=== PATIENT | male | born 1930 | race Caucasian/White ===

== ENCOUNTER → 2018-02-07 | Outpatient (CLI) | payer MEDICARE, OTHER ==
[~2018-02-07] MED LIST: ACE500 PO; ACET-2146 PO; ACET-2708 PO; ASCO100T PO; ASP325 PO; ASPI-1471 PO; CHOL10005 PO; CLOB50FO2 TP; CYAN100058 PO; EZE10 PO; FINA5TAB67 PO; FLUT10SP NS; GLUC-198 PO; GLUC500C29 PO; IBUP200C71 PO; KETC15T TP; LACT1CAP9 PO; LEV125 PO; LEVO150T72 PO; LORA-629 PO; LORA10TA2 PO; METO25TA91 PO; MIN100 PO; MINO100T8 PO; MOM PO; MULT-865 PO; MULT1CAP41 PO; NIAC100040 PO; OMEG-23 PO; OMEP-125 PO; OMEP40CA45 PO; OXYGENHOME INH; PER PO; PRED20TA6 PO; SAW450CA3 PO; SAW500CA10 PO; SEN100 PO; SILD100T59 PO; TRI05T TOP; TRIA15OI20 TP; VIT1CAPS9 PO; XLEAR NS; [UNRECOGNIZED DRUG - CODE] TP; [UNRECOGNIZED DRUG - CODE] TP; [UNRECOGNIZED DRUG - CODE] TP; [UNRECOGNIZED DRUG - MIXTURE]
[2018-02-07 14:01] LABS: PLATELET COUNT, AUTOMATED 236 K/uL (150-450)
== END ==
LOC: LAB 13:40
PROVIDERS: ATTEND Nurse Practitioner Family
DX: M25.50 Pain in unspecified joint (principal); M79.1 Myalgia
CPT/HCPCS: 36415; 82040; 82247; 82310; 82374; 82435; 82565; 82947; 84075; 84132; 84155; 84295; 84450; 84460; 84520; 85025; 85651; 86140

== ENCOUNTER 2018-02-18 02:02 | Emergency (ER) | payer MEDICARE, OTHER ==
[~2018-02-18 02:02] MED LIST changes: -CYCL10TA29 PO; -TRAM-420 PO
--- NOTE | 2018-02-18 02:27 | ER Report ---
History and Physical Time Seen By MD: 02:13 Hx. of Stated Complaint: PT REPORTS SEVERE SPASMS /PAIN IN R BUTTOCK AREA AND BETWEEN LEGS HPI/ROS CHIEF COMPLAINT: back pain HISTORY OF PRESENT ILLNESS: This is an 87 year old male. He is having severe pain in the low back. Has been having some low back problems, and has an appointment to see Dr. Simms later today. Tonight awoke with pain that was uncontrollable. Could not get out of bed. Called EMS and they responded. Started IV and gave him 10mg of Morphine IV and Ativan 2mg IV with minimal relief. Arrived and was in obvious distress because of severe pain. Pain is in right buttock and down his legs. He also has a burning pain in the buttock and between legs to scrotum and testicles. He has had a recent MRI of the lumbar spine at [facility]. Dr. Munoz was going to be doing a steroid injection today. He denies any bowel or bladder incontinence. He has not been able to have a bowel movement today. Denies any pain with palpating over the scrotum, testicles, crotch, buttocks area, even though that is where he is feeling some burning pain. When he tries to move, the pain worsens severely. No recent illnesses, shortness of breath, chest pain. No fevers or chills. Allergies: Coded Allergies: adhesive (Verified Allergy, Mild, WELTS, 11/02/12) tamsulosin (Verified Allergy, Unknown, Dizziness, 12/22/17) Home Meds Active Scripts Omeprazole (OMEPRAZOLE) 20 Mg Capsule.dr, 1 CAP PO QODAY for 90 Days, #45 CAP 4 Refills Prov:NIDIA JOSEPH MD 01/13/18 Reported Medications Oxygen (OXYGEN) Inha, 2 L INH HS, L 12/23/17 [place]-3 Fatty Acids/Fish Oil (FISH OIL 1,000 MG SOFTGEL) 1 Each Capsule, 1 CAP PO BID, CAPSULE 12/23/17 Saw [place] Fruit (SAW PALMETTO) 450 Mg Capsule, 1 CAP PO BID, CAPSULE 12/23/17 Glucosa Barajas 2KCL/Chondroitin Barajas (GLUCOSAMINE & CHONDROITIN CAP) 1 Each Capsule, 2 CAP PO BID, CAPSULE 12/23/17 Cyanocobalamin (Vitamin B-12) (Vitamin B-12) 1,000 Mcg Capsule, 1 CAP PO QDAY 5/24/18 Cholecalciferol (Vitamin D3) (VITAMIN D3) 1,000 Unit Tablet, 1 TAB PO QDAY, TAB 12/23/17 Vit C/E/Zn/Coppr/Lutein/Zeaxan (Preservision Areds 2 Softgel) 1 Each Capsule, 1 CAP PO BID 12/23/17 Triamcinolone Acetonide 0.1% Oint 15 Gm Tube (TRIAMCINOLONE ACETONIDE 0.1% 15 GM TUBE) 15 Gm Oint...g., 1 SAMANTA TP PRN, TUBE 12/23/17 Clobetasol Propionate/Emoll (CLOBETASOL EMOLLNT 0.05% FOAM) 50 Gm Foam, 1 SAMANTA TP BID 12/23/17 Ketoconazole (KETOCONAZOLE) Unknown Strength Cream..g., TP BID, #15 TUBE 12/23/17 Multivitamin (DAILY MULTIPLE VITAMIN) 1 Each Tablet, 1 TAB PO DAILY 12/23/17 Minocycline Hcl (MINOCYCLINE HCL) 100 Mg Tablet, 1 TAB PO QDAY Y for PRN, CAPSULE 12/23/17 Aspirin (ASPIR 81) 81 Mg Tablet.dr, 1 TAB PO HS, TAB 12/23/17 Acetaminophen 500 Mg Tab (ACETAMINOPHEN EXTRA STRENGTH) 500 Mg Tablet, 2 TAB PO HS, TAB 12/23/17 [XLear] No Conflict Check, 1 SPRAY NS PRN 12/23/17 Lactobacillus Combo No.10 (PROBIOTIC) 1 Each Capsule, 1 EACH PO QDAY, CAPSULE 12/23/17 Finasteride (FINASTERIDE) 5 Mg Tablet, 1 TAB PO HS 12/23/17 Levothyroxine Sodium (LEVOTHYROXINE SODIUM) 0.125 Mg Tab, 1 TAB PO 5XW, TAB 12/23/17 Discontinued Reported Medications Ibuprofen (IBUPROFEN) 200 Mg Capsule, 2 CAP PO TID Y for PAIN, CAPSULE 12/23/17 Loratadine (LORATADINE) 10 Mg Tablet, 1 TAB PO PRN 12/23/17 Discontinued Scripts Cyclobenzaprine Hcl (CYCLOBENZAPRINE HCL) 10 Mg Tablet, 10 MG PO Q8H Y for MUSCLE SPASMS, #20 TAB 0 Refills Prov:DAWOOD DE LA TORRE MD 02/18/18 Prednisone (PREDNISONE) 20 Mg Tablet, 20 MG PO BID, #10 TAB 0 Refills Prov:LOLLY SHETHP-BC 02/07/18 Reviewed Nurses Notes: Yes Smoking Status: Former Smoker Hx Substance Use Disorder: No Hx Alcohol Use: Yes (LOTS OF WINE AT NIGHT ) Constitutional Physical Exam General Appearance: The patient is alert. Acute distress due to pain. When not moving will be okay, but with moving or palpation on evaluation, will have severe pain. Eyes: Pupils are equal, round. No pallor, injection or icterus. ENT: Mucous membranes are moist. Normal oral mucosa. Respiratory: Lungs are clear to auscultation. Cardiovascular: Regular rate and rhythm. No murmurs, gallops or rubs. No edema. Gastrointestinal: Abdomen is soft and non tender. Nondistended. No masses or organomegaly. Normal active bowel sounds. No costovertebral angle tenderness with percussion. Genitourinary: No pain with palpation of the scrotum and testes. No pain with palpation throughout the crotch area. Neurological: Alert and oriented x3. Has normal sensation in the legs at this time. Shooting pain in right leg and buttock. Afraid to move because it will cause the severe pain to come on again. Skin: Warm and dry. No rashes. Musculoskeletal: Extremities are nontender to palpation. When trying to palpate his back, the pain spasmed again. DIFFERENTIAL DIAGNOSIS: After history and physical exam, differential diagnosis was considered for back pain including but not limited to muscular pain, herniated disc, intra-abdominal causes and urinary tract infection. Medical Decision Making Data Points Laboratory Hematology Test 02/18/18 02:46 02/18/18 05:20 Red Blood Count 5.52 M/uL (4.00-5.60) Mean Corpuscular Volume 89.8 fL (80.0-96.0) Mean Corpuscular Hemoglobin 31.4 pg (26.0-33.0) Mean Corpuscular Hemoglobin Concent 35.0 g/dL (32.0-36.0) Red Cell Distribution Width 14.5 % (11.5-14.5) Mean Platelet Volume 6.3 fL (7.2-11.1) Neutrophils (%) (Auto) 72.3 % (39.4-72.5) Lymphocytes (%) (Auto) 19.6 % (17.6-49.6) Monocytes (%) (Auto) 5.8 % (4.1-12.4) Eosinophils (%) (Auto) 1.2 % (0.4-6.7) Basophils (%) (Auto) 1.1 % (0.3-1.4) Nucleated RBC Relative Count (auto) 0.1 /100WBC Neutrophils # (Auto) 7.5 K/uL (2.0-7.4) Lymphocytes # (Auto) 2.0 K/uL (1.3-3.6) Monocytes # (Auto) 0.6 K/uL (0.3-1.0) Eosinophils # (Auto) 0.1 K/uL (0.0-0.5) Basophils # (Auto) 0.1 K/uL (0.0-0.1) Nucleated RBC Absolute Count (auto) 0.01 K/uL Erythrocyte Sedimentation Rate 12 mm/HOUR (0-20) Sodium Level 138 mmol/L (137-145) Potassium Level 3.7 mmol/L (3.5-5.0) Chloride Level 104 mmol/L (98-107) Carbon Dioxide Level 24 mmol/L (22-30) Blood Urea Nitrogen 15 mg/dl (9-21) Creatinine 0.90 mg/dl (0.66-1.25) Glomerular Filtration Rate Calc > 60.0 Random Glucose 118 mg/dl (75-110) Calcium Level 8.7 mg/dl (8.4-10.2) Total Bilirubin 1.2 mg/dl (0.2-1.3) Aspartate Amino Transf (AST/SGOT) 27 U/L (0-35) Alanine Aminotransferase (ALT/SGPT) 35 U/L (0-56) Alkaline Phosphatase 69 U/L (0-126) C-Reactive Protein 0.7 mg/dl (<1.0) Total Protein 7.6 g/dl (6.3-8.2) Albumin 4.0 g/dl (3.5-5.0) Urine Color Yellow Urine Clarity Clear Urine pH 6.0 pH (4.8-9.5) Urine Specific Musella >1.060 Urine Protein Negative mg/dL (NEGATIVE) Urine Glucose (UA) Negative mg/dL (NEGATIVE) Urine Ketones Negative mg/dL (NEGATIVE) Urine Blood Negative (NEGATIVE) Urine Nitrite Negative (NEGATIVE) Urine Bilirubin Negative (NEGATIVE) Urine Urobilinogen Negative mg/dL (0.2-1.9) Urine Leukocyte Esterase Negative (NEGATIVE) Urine RBC <1 /HPF (0-2/HPF) Urine WBC <1 /HPF (0-5/HPF) Urine Squamous Epithelial Cells None /LPF (</=FEW) Urine Bacteria Negative /HPF (NONE-FEW) Urine Mucus None /HPF (NONE-FEW) Chemistry Test 02/18/18 02:46 02/18/18 05:20 White Blood Count 10.4 k/uL (4.5-11.0) Red Blood Count 5.52 M/uL (4.00-5.60) Hemoglobin 17.4 g/dL (14.0-18.0) Hematocrit 49.6 % (42.0-52.0) Mean Corpuscular Volume 89.8 fL (80.0-96.0) Mean Corpuscular Hemoglobin 31.4 pg (26.0-33.0) Mean Corpuscular Hemoglobin Concent 35.0 g/dL (32.0-36.0) Red Cell Distribution Width 14.5 % (11.5-14.5) Platelet Count 210 K/uL (150-450) Mean Platelet Volume 6.3 fL (7.2-11.1) Neutrophils (%) (Auto) 72.3 % (39.4-72.5) Lymphocytes (%) (Auto) 19.6 % (17.6-49.6) Monocytes (%) (Auto) 5.8 % (4.1-12.4) Eosinophils (%) (Auto) 1.2 % (0.4-6.7) Basophils (%) (Auto) 1.1 % (0.3-1.4) Nucleated RBC Relative Count (auto) 0.1 /100WBC Neutrophils # (Auto) 7.5 K/uL (2.0-7.4) Lymphocytes # (Auto) 2.0 K/uL (1.3-3.6) Monocytes # (Auto) 0.6 K/uL (0.3-1.0) Eosinophils # (Auto) 0.1 K/uL (0.0-0.5) Basophils # (Auto) 0.1 K/uL (0.0-0.1) Nucleated RBC Absolute Count (auto) 0.01 K/uL Erythrocyte Sedimentation Rate 12 mm/HOUR (0-20) Glomerular Filtration Rate Calc > 60.0 Calcium Level 8.7 mg/dl (8.4-10.2) Total Bilirubin 1.2 mg/dl (0.2-1.3) Aspartate Amino Transf (AST/SGOT) 27 U/L (0-35) Alanine Aminotransferase (ALT/SGPT) 35 U/L (0-56) Alkaline Phosphatase 69 U/L (0-126) C-Reactive Protein 0.7 mg/dl (<1.0) Total Protein 7.6 g/dl (6.3-8.2) Albumin 4.0 g/dl (3.5-5.0) Urine Color Yellow Urine Clarity Clear Urine pH 6.0 pH (4.8-9.5) Urine Specific Musella >1.060 Urine Protein Negative mg/dL (NEGATIVE) Urine Glucose (UA) Negative mg/dL (NEGATIVE) Urine Ketones Negative mg/dL (NEGATIVE) Urine Blood Negative (NEGATIVE) Urine Nitrite Negative (NEGATIVE) Urine Bilirubin Negative (NEGATIVE) Urine Urobilinogen Negative mg/dL (0.2-1.9) Urine Leukocyte Esterase Negative (NEGATIVE) Urine RBC <1 /HPF (0-2/HPF) Urine WBC <1 /HPF (0-5/HPF) Urine Squamous Epithelial Cells None /LPF (</=FEW) Urine Bacteria Negative /HPF (NONE-FEW) Urine Mucus None /HPF (NONE-FEW) Urinalysis Test 02/18/18 05:20 Urine Color Yellow Urine Clarity Clear Urine pH 6.0 pH (4.8-9.5) Urine Specific Musella >1.060 Urine Protein Negative mg/dL (NEGATIVE) Urine Glucose (UA) Negative mg/dL (NEGATIVE) Urine Ketones Negative mg/dL (NEGATIVE) Urine Blood Negative (NEGATIVE) Urine Nitrite Negative (NEGATIVE) Urine Bilirubin Negative (NEGATIVE) Urine Urobilinogen Negative mg/dL (0.2-1.9) Urine Leukocyte Esterase Negative (NEGATIVE) Urine RBC <1 /HPF (0-2/HPF) Urine WBC <1 /HPF (0-5/HPF) Urine Squamous Epithelial Cells None /LPF (</=FEW) Urine Bacteria Negative /HPF (NONE-FEW) Urine Mucus None /HPF (NONE-FEW) ED Course/Re-evaluation Clinical Indication for ER IV: Hydration, IV Access ED Course After my evaluation, gave Dilaudid 0.5mg IV, Norflex 30mg IV and Decadron 10mg IV and let the patient rest to see if we could obtain better pain relief. Labs ordered as well as a urinalysis. The patient had very little improvement with these medicines. Gave Dilaudid 0.5mg IV and Toradol 30mg IV. Abdominal/Pelvis CT ordered, and no acute problems noted. Still with the lumbar spine problems as expected. Re-evaluation shows improvement. We are able to get him up and he is able to walk to the bathroom. Urine sample provided and negative. Able to return home. Recommended that he keep the follow-up appointment later today with Dr. Munoz and Dr. Simms. Home with a prescription for Flexeril to use in addition to his Tylenol. Further medications per Dr. Smims and Dr. Munoz, or Dr. Joseph. Decision to Disposition Date: Feb 18, 2018 Decision to Disposition Time: 06:30 Depart Departure Latest Vital Signs Impression: Primary Impression: Lumbar radiculopathy Condition: Improved Disposition: HOME OR SELF-CARE Referrals: NIDIA JOSEPH MD (PCP) Patient Instructions: Lumbar Radiculopathy (ED) Additional Instructions: The pain you were having appears to be due to the problems in your low back. Keep using Tylenol for pain. We can add a muscle relaxer called Flexeril that you can use three times a day as needed for pain and spasm. We recommend that you keep your appointment with Dr. Simms and Dr. Munoz. Discuss further options for pain with them today. DAWOOD DE LA TORRE MD Feb 18, 2018 02:27
[2018-02-18] MEDS ORDERED: HYDROmorphone* 1 MG/ML 1 MG/ML ML IVP ONE ×2 (02:30→03:40)
[2018-02-18] MEDS ORDERED: DEXAMETHASONE SOD PHOS 10MG/ML IVP ONE (02:30)
[2018-02-18] MEDS ORDERED: ORPHENADRINE 60MG/2ML INJ IVP ONE (02:30)
[2018-02-18 02:51] LABS: PLATELET COUNT, AUTOMATED 210 K/uL (150-450)
[2018-02-18] MEDS ORDERED: KETOROLAC 30 MG/ML VIAL IVP ONE (03:40)
[2018-02-18] MEDS ORDERED: IOPAMIDOL 76% 100 ML INFUS BTL 100 ML ONE (03:54)
--- NOTE | 2018-02-18 04:40 | RADIOLOGY IMAGING REPORT ---
FACILITY: [facility] [place] PATIENT NAME: William Espinoza : 1930 MR: [id number] V: [id number] EXAM DATE: ORDERING PHYSICIAN: DAWOOD DE LA TORRE TECHNOLOGIST: Location: [facility] [place] Patient: William Espinoza : 1930 Visit/Account:[id number] Date of Sevice: 02/18/2018 ABDOMEN/PELVIS WITH CONTRAST COMPARISONS: None. ADDITIONAL PERTINENT HISTORY: Low back pain with difficulties with urination and bowels. TECHNIQUE: Multiple axial images were obtained from the lung bases through the lesser trochanters aft er the IV administration of IV contrast. One of the following dose optimization techniques was utili zed in the performance of this exam: Automated exposure control; adjustment of the mA and/or kV accor ding to the patient's size; or use of an iterative reconstruction technique. Specific details can b e referenced in the facility's radiology CT exam operational policy. CONTRAST: 75 ml of Isovue-370 FINDINGS: Lung bases: Scarring involving the right lung base. Minimal left basilar atelectatic change. Free air and free fluid: None. Liver: Mild fatty infiltration of the liver. Otherwise negative Spleen: Negative. Kidneys, ureters and urinary bladder: The urinary bladder is moderately distended. Adrenal glands: Negative. Pancreas: Negative. Gallbladder: Calcified gallstone within the gallbladder lumen. No CT evidence of acute cholecystitis. Bowel and mesentery: Negative.. Pelvic contents: Significant enlargement of the prostate impinging upon the inferior surface of the urinary bladder. Lymph node assessment: Negative. Retroperitoneum: Negative. Abdominal vasculature: Atherosclerotic disease of the abdominal aorta and its major branches. Surrounding soft tissues: Negative. Osseous structures: Grade 1 anterior listhesis of L3 on L4 with facet hypertrophic changes. No bony f ractures. Findings concerning for severe canal stenosis at L3-L4. Multilevel endplate sclerosis and a nteriorly and posteriorly directed osteophytes and facet hypertrophic changes. IMPRESSION: 1. Moderately distended urinary bladder with significant enlargement of the prostate. 2. Findings concerning for severe canal stenosis at the level of L3-L4 with spondylitic change in gra de 1 anterior listhesis of L3 on L4. 3. No acute intra-abdominal or intrapelvic process. 4. Cholelithiasis without CT evidence of acute cholecystitis. Report Dictated By: Mathew Tirado MD at 02/18/2018 4:29 AM Report E-Signed By: Mathew Tirado MD at 02/18/2018 4:36 AM WSN:[id number]
[2018-02-18 06:30] VITALS: BP 148/93
[2018-02-18] MEDS ORDERED: CYCL10TA29 PO (06:33)
== END 2018-02-18 06:50 | disposition home or self-care (01) ==
LOC: ER 02:05
DX: M54.16 Radiculopathy, lumbar region (principal)
CPT/HCPCS: 74177; 81001; 85025; 85651; 86140; 96374; 96375; 96376; 99284; J1100; J1170; J1885; J2360; Q9967; 82040; 82247; 82310; 82374; 82435; 82565; 82947; 84075; 84132; 84155; 84295; 84450; 84460; 84520

== ENCOUNTER → 2018-02-18 | Outpatient (CLI) | payer MEDICARE, OTHER ==
[~2018-02-18] MED LIST changes: +CYCL10TA29 PO; +IBUP-136 PO; -IBUP200C71 PO; +TRAM-420 PO
== END ==
LOC: AMB 01:28
PROVIDERS: ATTEND Nurse Practitioner
DX: M54.5 Low back pain (principal)
CPT/HCPCS: A0425; A0427

== ENCOUNTER 2018-02-23 09:28 | Emergency (ER) | payer MEDICARE, OTHER ==
[~2018-02-23 09:28] MED LIST changes: +CYCL10TA29 PO
--- NOTE | 2018-02-23 09:39 | ER Report ---
History and Physical Time Seen By MD: 09:38 Hx. of Stated Complaint: PATIENT IS HERE FOR BACK PAIN. HPI/ROS CHIEF COMPLAINT: low back pain HISTORY OF PRESENT ILLNESS: This is an 87 year old male. He is having intermittent back pain with radiation to the groin/scrotum area and right leg. He was here last week on Wednesday morning and was treated for severe pain and spasming. He was seen on Wednesday by dr. Munoz for a steroid injection in his back. Had been doing okay since then and had seen his primary care provider on Wednesday, but today is having increasing pain again. He had multiple medications in the ER. He was given a prescription for Flexeril. He took the Flexeril this morning, as well as Aleve and Tylenol. No loss of control of bowel or bladder. He has no weakness at this time. No fever or chills. Allergies: Coded Allergies: adhesive (Verified Allergy, Mild, WELTS, 11/02/12) tamsulosin (Verified Allergy, Unknown, Dizziness, 12/22/17) Home Meds Active Scripts Prednisone (PREDNISONE) 20 Mg Tablet, 60 MG PO QDAY, #15 TAB 0 Refills Prov:DAWOOD DE LA TORRE MD 02/23/18 Tramadol Hcl (TRAMADOL HCL) 50 Mg Tablet, 50 MG PO Q6H Y for PAIN, #15 TAB 0 Refills Prov:DAWOOD DE LA TORRE MD 02/23/18 Omeprazole (OMEPRAZOLE) 20 Mg Capsule.dr, 1 CAP PO QODAY for 90 Days, #45 CAP 4 Refills Prov:NIDIA JOSEPH MD 01/13/18 Reported Medications Oxygen (OXYGEN) Inha, 2 L INH HS, L 12/23/17 [place]-3 Fatty Acids/Fish Oil (FISH OIL 1,000 MG SOFTGEL) 1 Each Capsule, 1 CAP PO BID, CAPSULE 12/23/17 [place] Fruit (SAW PALMETTO) 450 Mg Capsule, 1 CAP PO BID, CAPSULE 12/23/17 Glucosa [place] 2KCL/Chondroitin Barajas (GLUCOSAMINE & CHONDROITIN CAP) 1 Each Capsule, 2 CAP PO BID, CAPSULE 12/23/17 Cyanocobalamin (Vitamin B-12) (Vitamin B-12) 1,000 Mcg Capsule, 1 CAP PO QDAY 12/23/17 Cholecalciferol (Vitamin D3) (VITAMIN D3) 1,000 Unit Tablet, 1 TAB PO QDAY, TAB 12/23/17 Vit C/E/Zn/Coppr/Lutein/Zeaxan (Preservision Areds 2 Softgel) 1 Each Capsule, 1 CAP PO BID 12/23/17 Triamcinolone Acetonide 0.1% Oint 15 Gm Tube (TRIAMCINOLONE ACETONIDE 0.1% 15 GM TUBE) 15 Gm Oint...g., 1 SAMANTA TP PRN, TUBE 12/23/17 Clobetasol Propionate/Emoll (CLOBETASOL EMOLLNT 0.05% FOAM) 50 Gm Foam, 1 SAMANTA TP BID 12/23/17 Ketoconazole (KETOCONAZOLE) Unknown Strength Cream..g., TP BID, #15 TUBE 12/23/17 Multivitamin (DAILY MULTIPLE VITAMIN) 1 Each Tablet, 1 TAB PO DAILY 12/23/17 Minocycline Hcl (MINOCYCLINE HCL) 100 Mg Tablet, 1 TAB PO QDAY Y for PRN, CAPSULE 12/23/17 Aspirin (ASPIR 81) 81 Mg Tablet.dr, 1 TAB PO HS, TAB 12/23/17 Acetaminophen 500 Mg Tab (ACETAMINOPHEN EXTRA STRENGTH) 500 Mg Tablet, 2 TAB PO HS, TAB 12/23/17 [XLear] No Conflict Check, 1 SPRAY NS PRN 12/23/17 Lactobacillus Combo No.10 (PROBIOTIC) 1 Each Capsule, 1 EACH PO QDAY, CAPSULE 12/23/17 Finasteride (FINASTERIDE) 5 Mg Tablet, 1 TAB PO HS 12/23/17 Levothyroxine Sodium (LEVOTHYROXINE SODIUM) 0.125 Mg Tab, 1 TAB PO 5XW, TAB 12/23/17 Discontinued Reported Medications Ibuprofen (IBUPROFEN) 200 Mg Capsule, 2 CAP PO TID Y for PAIN, CAPSULE 12/23/17 Loratadine (LORATADINE) 10 Mg Tablet, 1 TAB PO PRN 12/23/17 Discontinued Scripts Cyclobenzaprine Hcl (CYCLOBENZAPRINE HCL) 10 Mg Tablet, 10 MG PO Q8H Y for MUSCLE SPASMS, #20 TAB 0 Refills Prov:DAWOOD DE LA TORRE MD 02/18/18 Prednisone (PREDNISONE) 20 Mg Tablet, 20 MG PO BID, #10 TAB 0 Refills Prov:LOLLY SHETH ASSISTANT PROFESSOR OF MUSIC-BC 02/07/18 Reviewed Nurses Notes: Yes Smoking Status: Former Smoker Hx Substance Use Disorder: No Hx Alcohol Use: Yes (LOTS OF WINE AT NIGHT ) Constitutional Vital Sign - Last 24 Hours 02/23/18 02/23/18 02/23/18 02/23/18 09:28 09:33 09:33 09:45 Temp 98.7 Pulse ??? 125 Resp 20 B/P (MAP) 171/109 (129) 171/109 134/77 (96) Pulse Ox 96 O2 Delivery Room Air 02/23/18 02/23/18 02/23/18 02/23/18 09:58 10:00 10:15 10:28 Pulse 97 77 B/P (MAP) 122/82 (95) 117/69 (85) Pulse Ox 97 95 02/23/18 02/23/18 02/23/18 10:30 10:45 11:59 Pulse 74 B/P (MAP) 130/74 (92) 115/69 (84) 140/92 (108) Pulse Ox 94 O2 Delivery Room Air Physical Exam General appearance: alert no distress. Back: Thoracic spine has no spinal or paraspinal tenderness to palpation. Lumbar spine has no spinal tenderness, but with moderate paraspinal tenderness to the right. Gastrointestinal: Abdomen is soft, non tender, no masses.. Skin: No lesions and no rashes. Cardiovascular: Normal capillary refill and pulses to feet. Neurological: Motor function: leg strength normal and symmetric for both legs Sensory function: normal for all leg dermatomes. Straight leg raise negative to 70 degrees. DIFFERENTIAL DIAGNOSIS: After history and physical exam differential diagnosis was considered for back pain including muscular strain, herniated disc, intra- abdominal and renal causes. Medical Decision Making ED Course/Re-evaluation ED Course Patient given Prednisone and Lortab here in the ER. Discussed with Dr. Joseph, primary care. Discussed with Dr. Simms at [facility]. Dr. Simms will see him on Wednesday morning. Plan to use Prednisone burst and Ultram in the meantime. Decision to Disposition Date: Feb 23, 2018 Decision to Disposition Time: 11:50 Depart Departure Latest Vital Signs Vital Signs Date Time Temp Pulse Resp B/P (MAP) Pulse Ox O2 Delivery O2 Flow Rate FiO2 02/23/18 11:59 74 140/92 (108) 94 Room Air 02/23/18 09:33 98.7 20 Impression: Primary Impression: Lumbar radiculopathy Condition: Improved Disposition: HOME OR SELF-CARE Referrals: NIDIA JOSEPH MD (PCP) New Scripts Prednisone (PREDNISONE) 20 Mg Tablet 60 MG PO QDAY, #15 TAB 0 Refills Prov: DAWOOD DE LA TORRE MD 02/23/18 Tramadol Hcl (TRAMADOL HCL) 50 Mg Tablet 50 MG PO Q6H Y for PAIN, #15 TAB 0 Refills Prov: DAWOOD DE LA TORRE MD 02/23/18 Patient Instructions: Lumbar Radiculopathy (ED) Additional Instructions: Take Prednisone 20mg tablets, take 3 tablets once a day for 5 days. Take Tramadol 50mg tablets, one every 6 hours as needed for pain. You can keep taking the Flexeril (muscle relaxer) and Tylenol as needed. You can keep taking Aleve as needed for pain as well, but may cause stomach upset with the Prednisone. Take with food. DAWOOD DE LA TORRE MD Feb 23, 2018 09:39
[2018-02-23] MEDS ORDERED: predniSONE 20 MG TAB PO ONE (10:35)
[2018-02-23] MEDS ORDERED: APAP/HYDROCODONE 325/5 TAB PO ONE (10:35)
[2018-02-23] MEDS ORDERED: TRAM-420 PO ×2 (11:53→11:54)
[2018-02-23] MEDS ORDERED: PRED20TA6 PO ×3 (11:53→11:56)
[2018-02-23 11:59] VITALS: BP 140/92
== END 2018-02-23 12:03 | disposition home or self-care (01) ==
LOC: ER 09:42
DX: M54.16 Radiculopathy, lumbar region (principal)
CPT/HCPCS: 99283; A9270; J7512

== ENCOUNTER → 2018-03-07 | Outpatient (CLI) | payer MEDICARE, OTHER ==
[~2018-03-07] MED LIST changes: +TRAM-420 PO
--- NOTE | 2018-03-07 12:11 | EKG ---
FACILITY: [facility] - [place] PATIENT NAME: ENMA GALVIN : [id number] MR: [id number] V: [id number] EXAM DATE: ORDERING PHYSICIAN: NIDIA JOSEPH TECHNOLOGIST: MICHELLE Test Reason : TACHYCARDIA Blood Pressure : / mmHG Vent. Rate : 095 BPM Atrial Rate : 095 BPM P-R Int : 148 ms QRS Dur : 082 ms QT Int : 370 ms P-R-T Axes : 071 041 049 degrees QTc Int : 464 ms Sinus rhythm with occasional premature ventricular complexes Otherwise normal ECG No previous ECGs available Referred By: OPAL Confirmed By:
== END ==
LOC: LAB 09:27
PROVIDERS: ATTEND Family Medicine
DX: Z02.9 Encounter for administrative examinations, unspecified (principal)

== ENCOUNTER → 2018-03-30 | Outpatient (CLI) | payer MEDICARE, OTHER ==
[2018-03-30 15:33] LABS: PLATELET COUNT, AUTOMATED 221 K/uL (150-450)
--- NOTE | 2018-03-30 15:56 | EKG ---
[place] [facility] [place]: ENMA GALVIN : [id number] MR: [id number] V: [id number] EXAM DATE: ORDERING PHYSICIAN: RAZA KILPATRICK TECHNOLOGIST: TAMMY Test Reason : CHEST PAIN Blood Pressure : / mmHG Vent. Rate : 079 BPM Atrial Rate : 079 BPM P-R Int : 148 ms QRS Dur : 078 ms QT Int : 388 ms P-R-T Axes : 061 013 032 degrees QTc Int : 444 ms Normal sinus rhythm with sinus arrhythmia Normal ECG No previous ECGs available Confirmed by DONNA STALLWORTH ([id number]) on 03/30/2018 4:24:04 PM Referred By: VAN KILPATRICK Confirmed By:DONNA STALLWORTH
--- NOTE | 2018-03-30 17:02 | RADIOLOGY IMAGING REPORT ---
[facility] PATIENT NAME: William Espinoza : 1930 MR: [id number] V: [id number] EXAM DATE: ORDERING PHYSICIAN: RAZA KILPATRICK TECHNOLOGIST: Location: [facility] - [place] Patient: William Espinoza : 1930 Visit/Account:[id number] Date of Sevice: 03/30/2018 INDICATION: Chest pain. DATE: 03/30/2018 4:57 PM. TECHNIQUE: CHEST PA AND LAT COMPARISON: CT chest January 29, 2011 FINDINGS: Heart size is normal. No effusion, consolidation, or pneumothorax. The lungs are hyperlucen t. [id number]-[id number] multilevel degenerative findings. Diffusely decreased bone density. Cervical spin al hardware is incompletely imaged. IMPRESSION: No acute findings. No focal pneumonia. Report Dictated By: Larry Michelle MD at 03/30/2018 4:57 PM Report E-Signed By: Larry Michelle MD at 03/30/2018 4:57 PM WSN:[id number]
== END ==
LOC: LAB 15:10
PROVIDERS: ATTEND Nurse Practitioner Primary Care
DX: R91.8 Other nonspecific abnormal finding of lung field (principal); Z98.890 Other specified postprocedural states
CPT/HCPCS: 36415; 71046; 82040; 82247; 82310; 82374; 82435; 82565; 82947; 83880; 84075; 84132; 84155; 84295; 84450; 84460; 84484; 84520; 85025

== ENCOUNTER → 2018-05-30 | Outpatient (CLI) | payer MEDICARE, OTHER ==
[~2018-05-30] MED LIST changes: +CYCL-277 PO; +GADOBENATE 529MG/1ML 15ML VIAL IVP ONE; +NS(*) 0.9% 50 ML BAG 50 ML ONE
--- NOTE | 2018-05-30 17:46 | RADIOLOGY IMAGING REPORT ---
FACILITY: [facility] PATIENT NAME: William Espinoza : 1930 MR: [id number] V: [id number] EXAM DATE: ORDERING PHYSICIAN: JAGDISH MARTÍNEZ TECHNOLOGIST: Location: [facility] - [place] Patient: William Espinoza : 1930 Visit/Account:[id number] Date of Sevice: 05/30/2018 PELVIS W W/O CONTRAST HISTORY: Perianal pain since February 28, 2018. TECHNIQUE: Multiplanar multisequence magnetic resonance imaging of the pelvis without and with intra venous contrast. CONTRAST: 15 mL MultiHance IV contrast. COMPARISON: CT dated February 18, 2018. FINDINGS: : Small to moderate left and small right hydroceles. Moderate BPH with nodular mass effect upon t he bladder base. There is bladder wall irregularity and small diverticula, most compatible with chronometer assembler arnol bladder outlet obstruction. There is increased T1 signal within the left seminal vesicles, likel y related to internal hemorrhage. Otherwise negative. Visualized GI: Negative. No visualized bowel wall thickening. No perirectal inflammation or eviden ce for fistula. Vessels/spaces/nodes: Negative. No visualized lymphadenopathy. Bones/soft tissues: Moderate multilevel degenerative changes within the lumbar spine. There is grad e 1 anterolisthesis of L3 on L4. Please note, this exam is not tailored to evaluate for canal stenos is or foraminal narrowing. Minimal subcutaneous edema edema overlying the sacrum. No focal fluid co llections identified. IMPRESSION: 1. No acute findings. No explanation for the patient's perianal pain. 2. Small moderate left and small right hydroceles. 3. 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 4. Increased T1 signal within the left-sided seminal vesicles, likely related to hemorrhage of uncle ar etiology or significance. 5. Additional incidental/chronic findings, as above. Report Dictated By: Chung Morales MD at 05/30/2018 5:34 PM Report E-Signed By: Chung Morales MD at 05/30/2018 5:42 PM WSN:[id number]
== END ==
LOC: MRI 01:12
PROVIDERS: ATTEND Surgery
DX: Z13.89 Encounter for screening for other disorder (principal); N43.3 Hydrocele, unspecified; N40.1 Benign prostatic hyperplasia with lower urinary tract symptoms; N13.8 Other obstructive and reflux uropathy
CPT/HCPCS: 72197; A9577; J7050

== ENCOUNTER → 2018-06-09 | Outpatient (CLI) | payer MEDICARE, OTHER ==
[~2018-06-09] MED LIST changes: -GADOBENATE 529MG/1ML 15ML VIAL IVP ONE; +LEV112 PO; -NS(*) 0.9% 50 ML BAG 50 ML ONE
== END ==
LOC: LAB 10:42
PROVIDERS: ATTEND Family Medicine
DX: E03.9 Hypothyroidism, unspecified (principal)
CPT/HCPCS: 36415; 84443

== ENCOUNTER → 2018-07-05 | Outpatient (CLI) | payer MEDICARE, OTHER | LOC: AMB 09:05 | PROVIDERS: ATTEND Nurse Practitioner | DX: R53.1 Weakness (principal); R00.1 Bradycardia, unspecified; R41.82 Altered mental status, unspecified; R09.02 Hypoxemia | CPT/HCPCS: A0425; A0427 ==

== ENCOUNTER 2018-07-13 16:01 | Inpatient (IN) | payer MEDICARE, OTHER ==
[~2018-07-13] VITALS: Ht 170.2 cm; Wt 74.1 kg
[2018-07-13 16:20] VITALS: BP 123/69
[2018-07-13] MEDS ORDERED: NITROGLYCERIN 0.4 MG SUBL SL PRN (16:30)
[2018-07-13] MEDS ORDERED: POTASSIUM CHL 20 MEQ TABCR PO SCH (17:00)
[2018-07-13] MEDS: POTASSIUM CHL PWDR 20 MEQ PKT PO SCH (17:30)
--- NOTE | 2018-07-13 20:40 | History & Physical ---
History of Present Illness Chief Complaint Weakness post hospitalization for MA History of Present Illness 88M admitted to [facility] for rehabilitation after STEMI beginning of this month. Transferred to [facility] after CPR and intubation at [facility]. Received thrombolytics here due to weather delay in transport then underwent salvage PCI with 4 stents to RCA. 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 Course was uncomplicated other than some mild anemia, hematuria and FOBT positive stool. Denies any current concerns. He previously had desired DNR status but this was unknown at time of resuscitation. Now wishes to be full code for the time being until he can discuss with family. History Problems: (1) STEMI (ST elevation myocardial infarction) Status: Resolved Home Meds Active Scripts Levothyroxine Sodium (LEVOTHYROXINE SODIUM) 0.112 Mg Tab, 1 TAB PO 5XW for 45 Days, #45 TAB Please get lab work done a few days prior to running out of this medication. Orders are at [facility] Lab. Prov:NIDIA JOSEPH MD 06/09/18 Cyclobenzaprine Hcl (CYCLOBENZAPRINE HCL) 5 Mg Tablet, 1 TAB PO BID PRN for SPASMS, #90 TAB 3 Refills Prov:JAGDISH MARTÍNEZ MD 05/18/18 Tramadol Hcl (TRAMADOL HCL) 50 Mg Tablet, 25-50 MG PO 1-2XD PRN for PAIN, #30 TAB 0 Refills Prov:NIDIA JOSEPH MD 04/20/18 Omeprazole (OMEPRAZOLE) 20 Mg Capsule.dr, 1 CAP PO QODAY for 90 Days, #45 CAP 4 Refills Prov:NIDIA JOSEPH MD 01/13/18 Reported Medications Oxygen (OXYGEN) Inha, 2 L INH HS, L 12/23/17 [place]-3 Fatty Acids/Fish Oil (FISH OIL 1,000 MG SOFTGEL) 1 Each Capsule, 1 CAP PO BID, CAPSULE 12/23/17 [place] Fruit (SAW PALMETTO) 450 Mg Capsule, 1 CAP PO BID, CAPSULE 12/23/17 Glucosa Barajas 2KCL/Chondroitin Barajas (GLUCOSAMINE & CHONDROITIN CAP) 1 Each Capsule, 2 CAP PO BID, CAPSULE 12/23/17 Cyanocobalamin (Vitamin B-12) (Vitamin B-12) 1,000 Mcg Capsule, 1 CAP PO QDAY 12/23/17 Cholecalciferol (Vitamin D3) (VITAMIN D3) 1,000 Unit Tablet, 1 TAB PO QDAY, TAB 12/23/17 Vit C/E/Zn/Coppr/Lutein/Zeaxan (Preservision Areds 2 Softgel) 1 Each Capsule, 1 CAP PO BID 12/23/17 Triamcinolone Acetonide 0.1% Oint 15 Gm Tube (TRIAMCINOLONE ACETONIDE 0.1% 15 GM TUBE) 15 Gm Oint...g., 1 SAMANTA TP PRN, TUBE 12/23/17 Clobetasol Propionate/Emoll (CLOBETASOL EMOLLNT 0.05% FOAM) 50 Gm Foam, 1 SAMANTA TP BID 12/23/17 Ketoconazole (KETOCONAZOLE) Unknown Strength Cream..g., TP BID, #15 TUBE 12/23/17 Multivitamin (DAILY MULTIPLE VITAMIN) 1 Each Tablet, 1 TAB PO DAILY 12/23/17 Minocycline Hcl (MINOCYCLINE HCL) 100 Mg Tablet, 1 TAB PO QDAY PRN for PRN, CAPSULE 12/23/17 Aspirin (ASPIR 81) 81 Mg Tablet.dr, 1 TAB PO HS, TAB 12/23/17 Acetaminophen 500 Mg Tab (ACETAMINOPHEN EXTRA STRENGTH) 500 Mg Tablet, 2 TAB PO HS, TAB 12/23/17 [XLear] No Conflict Check, 1 SPRAY NS PRN 12/23/17 Lactobacillus Combo No.10 (PROBIOTIC) 1 Each Capsule, 1 EACH PO QDAY, CAPSULE 12/23/17 Finasteride (FINASTERIDE) 5 Mg Tablet, 1 TAB PO HS 12/23/17 Allergies: Coded Allergies: adhesive (Verified Allergy, Mild, WELTS, 07/05/18) tamsulosin (Verified Allergy, Unknown, Dizziness, 07/05/18) Patient History: FH: heart failure MOTHER, , Age:86 FH: myocardial infarction FATHER, , Age:64 FHx: heart disease BROTHER OR SISTER, Age:81 Smoking Status: Former Smoker Caffeine Intake: Tea Caffeine/Cups Per Day: 2 Hx Alcohol Use: Yes Alcohol Used: Wine Hx Substance Use Disorder: No Social Drug Use: Never Review of Systems Constitutional: No Fever, No Weight Loss Neurological: Weakness; No Syncope Cardiovascular: No Chest Pain, No Palpitations Respiratory: No Shortness of Breath, No Cough Gastrointestinal: No Nausea, No Vomiting Exam Vital Signs Vital Signs Date Time Temp Pulse Resp B/P (MAP) Pulse Ox O2 Delivery O2 Flow Rate FiO2 07/13/18 19:40 96 Room Air 07/13/18 16:20 97.2 82 20 123/69 (87) General Appearance: Alert, Awake, No Acute Distress, Afebrile Neuro: No Gross deficits Eyes: PERRLA ENT: Normal Respiratory: No Respiratory Distress GI: Abd Soft and Non-Tender Musculoskeletal: No Weakness/Pain Extremities: Soft and Non Tender, Warm, Pulses, Perfused, Edema (mild b/l LE edema) Integumentary: Skin Intact without Lesion / Mass Psych: Alert & Oriented X3 Assessment and Plan Problems: (1) Weakness Status: Acute Assessment & Plan: Secondary to prolonged hospitalization after STEMI. PT/OT consulted. (2) ANEMIA, UNSPECIFIED Status: Acute Assessment & Plan: Appears to be due to blood loss from hematuria and GI tract after being started on dual anti platelet therapy. Will recheck Hgb Wednesday or sooner if gross blood noted, currently asymptomatic. (3) STEMI (ST elevation myocardial infarction) Status: Resolved Assessment & Plan: Post 4 SUZANNE to RCA. Continue ASA, Brilinta and statin. 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 Cytology or imaging should be performed outpatient to rule out malignancy. Venous Thromboembolism Antithrombotics Is Pt On Any Antithrombotics?: No (early ambulation and high risk for serious bleed with DAPT and anticoagulation) SARIAH GIRALDO DO Jul 13, 2018 20:40
[2018-07-13] MEDS: MAGNESIUM OXIDE 400 MG TAB PO SCH (20:52)
[2018-07-13] MEDS: TICAGRELOR 90 MG TABLET PO SCH (20:52)
[2018-07-13] MEDS: ATORVASTATIN 40 MG TAB PO SCH (20:52)
[2018-07-14 07:00] VITALS: BP 105/49
[2018-07-14] MEDS: MAGNESIUM OXIDE 400 MG TAB PO SCH ×2 (09:01→20:39)
[2018-07-14] MEDS: TICAGRELOR 90 MG TABLET PO SCH ×2 (09:01→20:39)
[2018-07-14] MEDS: ASPIRIN 81 MG ENTERIC COATED PO SCH (09:01)
[2018-07-14] MEDS: POTASSIUM CHL PWDR 20 MEQ PKT PO SCH ×2 (09:02→17:00)
[2018-07-14] MEDS ORDERED: CYCL10TA29 PO (12:52)
--- NOTE | 2018-07-14 14:42 | Medical Nutrition Therapy ---
Nutrition Anthropometrics Height (Inches): 67.00 Height (Calculated Centimeters: 170.656997 Weight (Pounds): 173 Weight (Calculated Kilograms): 78.471 BMI: 27.1 Arsenio Nutrition Score: Arsenio Nutrition Risk Score: Dietary Referral Nutrition Risk Factors: Nutrition Risk Comment: Physical Findings Physical Appearance: Overweight BMI 25-29 Skin Appearance Skin Appearance: Edema Edema Location Modifier: Both Edema Location: Lower Extremity Type of Edema: Degree of Edema: 1+ Gastrointestinal Symptoms GI Symtoms: Blood in Stool, Diarrhea Tube Present: Bowel Sounds: Recent Bowel Pattern: Diarrhea Stool Characteristics: Nutritional Diagnosis Nutritional Risk Acuity 3: Fair Appetite, Nutrit Anemia Nutritional Acuity: 3-Mild Energy Requirement: 1950 (25 kcal/kg) Protein Requirement: 78 (1gm/kg) Fluid Requirement: 1950 (25ml/kg) Diet Type: Cardiac Nutrition Intervention: Cont diet as ordered, Encourage intake, HS snack Nutrition Monitoring & Eval Nutrition Goals: Eat 75-100% Meal RD Patient Assessment Time: [address] Assessment Type: RD Assessment Patient Nutrition Acuity: 3-Mild Follow Up Date: Jul 19, 2018 Nutritional Comment: 07/14 Pt admitted post STEMT. Pt has dx of anemia. Pt is on cardiac diet and eating 75- 100%. Pt has 1+ edema LE. Anticipate wt loss when edema resolved. Will cont to monitor and encourage intake. SCOTT MARTINEZ Jul 14, 2018 14:42
--- NOTE | 2018-07-14 15:08 | NUR ---
This Physical Therapist or Director Mobile was present for the entire physical therapy session directing the services, making the skilled judgement, and was not engaged in treating another patient or doing another task at the same time as the treatment session. Addendum: 07/15/18 at 1011 by ANDREW DUKE PT Amended: Links added.
--- NOTE | 2018-07-14 15:49 | OT ECF NOTE ---
Type of Note: Initial Note Primary Medical Diagnosis: Generalized weakness s/p NV Occupational Therapy Evaluation Date: 07/14/18 SUBJECTIVE: Prior Hospitalization: Transferred from [facility] to [facility] 07/05/18. At [facility] 07/05/18 thru 07/13/18. Prior Level of Function: Prior to admission, pt was (I) with ADLs/IADLs (driving/med management). Ambulating with a cane. Prior Living Status: Bi-level house, Spouse Community Services: Support adequate, No known needs Home Accessibility: Stairs with rails All needs on one level Basement in home Walk-in shower Equipment Owned: Front wheeled walker Cane Toilet riser Tub/shower chair Medical Complications/Past Medical History: Please see EMR Psychosocial Support: Spouse and daughter in town. Pain Scale (0-10): No report of pain at time of evaluation OBJECTIVE: Strength: MMT: Right Left Shoulder Flexion WFL WFL Elbow Flexion WFL WFL Wrist Extension WFL WFL Chief Steward/Stewardess WFL WFL (5= normal, 4= good, 3= fair, 2= poor, 1= trace) ROM: Both upper extremities, WFL Functional Transfer: Assistive Device: Front wheeled walker,Gait belt Transfer Ability: CGA ADL: Upper body dressing: Assistive device: Upper body dressing ability: Lower body dressing: Assistive device: Lower body dressing ability: Moderate assistance Toileting: Assistive device: Toileting ability: Grooming/hygiene: Assistive device: Grooming ability: Bathing: Assistive device: Bathing ability: Standardized Assessment: Tammy Index of Activities of Daily Livin/20 upon initial evaluation (07/14/18). ASSESSMENT: William presents to [facility] with decreased endurance and (I) with ADLs s/p NV and extended hospital admission. He will benefit from skilled OT services to improve activity tolerance and optimize (I) with ADLs/IADLs. Problem List/Current Limitations: Decreased activity tolerance Decreased strength Decreased ROM Generalized weakness Short Term Goals: 1) Pt will be Mod (I) UB/LB dressing. 2) Pt will be Mod (I) toilet task. 3) Pt will be Mod (I) grooming task. 4) Pt will be Mod (I) shower task. 5) Pt Tammy Index of ADLs score will improve by 2 points. 6) Pt will be educated on appropriate energy conservation techniques. 7) Pt will be Min A medication management task. [employer] Goals: Return home with services Patient Goals: "Get back to what I was doing before this episode" Rehabilitation Prognosis: Good Barriers to Discharge: None noted at this time PLAN: The patient will benefit from skilled occupational therapy services 5 times per week for 2 weeks including: Ther ex ADL training Safety training Ther act IADL training Transfer training Adaptive equip training Bed mobility Energy conservation Thank you for this referral. If you have any questions, concerns, or comments about this report or plan, please contact me at . Valentina Guillermo MS, OTR/L Occupational Therapist [facility]
--- NOTE | 2018-07-14 16:03 | PT ECF NOTE ---
Type of Note: Initial Eval Primary Medical Diagnosis: Generalized weakness s/p CA Physical Therapy Evaluation Date: 07/14/18 SUBJECTIVE: Prior Hospitalization: Transferred from [facility] to [facility] 07/05/18. At [facility] 07/05/18 thru 07/13/18. Prior Level of Function: Prior to admission, pt was (I) with ADLs/IADLs (driving/med management). Ambulating with a cane. Prior Living Status: Bi-level house, Spouse Community Services: Support adequate, No known needs Home Accessibility: Stairs with rails All needs on one level Basement in home Walk-in shower Equipment Owned: Front wheeled walker Cane Toilet riser Tub/shower chair Medical Complications/Past Medical History: Please see EMR Psychosocial Support: Spouse and daughter in town. Pain Scale (0-10): No report of pain at time of evaluation OBJECTIVE: Strength: Right Lower Extremity: Knee flexion: 5/5 Knee extension: 5/5 Hip flexion: 4/5 Hip external rotation: 5/5 Hip internal rotation: 5/5 Left Lower Extremity: Knee flexion: 5/5 Knee extension: 5/5 Hip flexion: 4/5 Hip external rotation: 5/5 Bed Mobility: Not assessed at initial visit due to pt sitting in chair upon PT arrival and pt wishing to return to chair following treatment. Transfers: Pt completed transfers sit to/from stand with FWW and CGA. Gait: Pt ambulated 40' with FWW and CGA. Pt ambulated to the BR and completed the TUG test. Pt demonstrated a slow, steady, step through gait pattern. Stairs: Not addressed at initial visit due to energy conservation concerns will address at a later visit. Timed Up and Go (>12 seconds indicated increased risk for falls): 26 seconds ASSESSMENT: Problem List/Current Limitations: Generalized weakness s/p CA and endurance deficits. Short Term Goals: 1. Pt to be complete bed mobility supine to/from sit independently. 2. Pt to be able to complete transfers sit to/from stand with least restrictive device modified independent. 3. Pt to be able to ambulate 150' w/ least restrictive device SBA/Mod I. 4. Pt to be able to ascend/descend 4 steps without rail SBA. Rehabilitation Prognosis: Good PLAN: The patient will benefit from skilled physical therapy services 5 times per week for 2 weeks including: therapeutic exercise, therapeutic activities, stair training, safety training, and endurance training in order to return home safely at prior level of function. Thank you for this referral. If you have any questions, concerns, or comments about this report or plan, please contact me at . H. Veronica Devlin, PT, MPT, OMS Colby Adame, SPT MTDD
[2018-07-14 17:00] VITALS: BP 129/74
[2018-07-14] MEDS: ACETAMINOPHEN 325 MG TAB PO PRN (17:00)
[2018-07-14] MEDS: ATORVASTATIN 40 MG TAB PO SCH (20:39)
[2018-07-15] MEDS: ACETAMINOPHEN 325 MG TAB PO PRN (02:23)
[2018-07-15 06:01] LABS: PLATELET COUNT, AUTOMATED 353 K/uL (150-450)
[2018-07-15 08:00] VITALS: BP 118/59
[2018-07-15] MEDS: MAGNESIUM OXIDE 400 MG TAB PO SCH ×2 (08:40→20:30)
[2018-07-15] MEDS: TICAGRELOR 90 MG TABLET PO SCH ×2 (08:40→20:30)
[2018-07-15] MEDS: ASPIRIN 81 MG ENTERIC COATED PO SCH (08:40)
[2018-07-15] MEDS: POTASSIUM CHL PWDR 20 MEQ PKT PO SCH ×2 (08:40→17:24)
[2018-07-15] MEDS ORDERED: LEVOTHYROXINE SOD 0.112 MG TAB PO ONE (10:35)
[2018-07-15] MEDS ORDERED: HYPROMELLOSE 0.4% LUB 15ML BTL OD PRN ×2 (10:50→11:10)
[2018-07-15] MEDS ORDERED: SALINE 0.65% NAS SPR 44 ML BTL PRN ×2 (10:50→11:10)
--- NOTE | 2018-07-15 14:12 | NUR ---
Occupational Therapy Impression Introduced 4WW as pt was considering obtaining one prior to admission. Occasional assist for managing brakes, pt demonstrating improved carryover with safety as tx progressed. CGA ambulation x50, x75ft, x75ft, x50ft. Pt fatigued, requiring frequent rest breaks. SpO2 and HR WNL. On room air. Introduced sock aid to improve (I) and energy conservation for donning adin hose. Mod (I) toileting. Will benefit from continued OT to address activity tolerance.Continue POC. Occupational Therapy Goals 1) Pt will be Mod (I) UB/LB dressing. 2) Pt will be Mod (I) toilet task. 3) Pt will be Mod (I) grooming task. 4) Pt will be Mod (I) shower task. 5) Pt Tammy Index of ADLs score will improve by 2 points. 6) Pt will be educated on appropriate energy conservation techniques. 7) Pt will be Min A medication management task. Patient's Goal
--- NOTE | 2018-07-15 14:25 | NUR ---
Physical Therapy Impression Pt ambulated 200' with RW and frequent standing rest breaks. Pt denied SOB and chest pain. SO2 maintained >90% on room air with HR max at 100 but mostly in 90s with ambulation. Physical Therapy Goals 1. Pt to be complete bed mobility supine to/from sit independently. 2. Pt to be able to complete transfers sit to/from stand with least restrictive device modified independent. 3. Pt to be able to ambulate 150' w/ least restrictive device SBA/Mod I. 4. Pt to be able to ascend/descend 4 steps without rail SBA. 5. Pt to be able to complete TUG test in 24 seconds with least restrictive device in order to decrease risk of falling. Patient's Goals
[2018-07-15 15:50] VITALS: BP 105/60
[2018-07-15] MEDS: ATORVASTATIN 40 MG TAB PO SCH (20:30)
[2018-07-16] MEDS: LEVOTHYROXINE SOD 0.112 MG TAB PO SCH (05:18)
[2018-07-16 07:43] VITALS: BP 97/60
[2018-07-16] MEDS: ACETAMINOPHEN 325 MG TAB PO PRN ×2 (07:43→20:39)
[2018-07-16 08:42] VITALS: BP 112/56
[2018-07-16] MEDS: TICAGRELOR 90 MG TABLET PO SCH ×2 (08:43→20:39)
[2018-07-16] MEDS: POTASSIUM CHL PWDR 20 MEQ PKT PO SCH ×2 (08:44→17:39)
[2018-07-16] MEDS: ASPIRIN 81 MG ENTERIC COATED PO SCH (08:44)
[2018-07-16] MEDS: MAGNESIUM OXIDE 400 MG TAB PO SCH ×2 (08:44→20:39)
[2018-07-16 15:20] VITALS: BP 106/49
[2018-07-16] MEDS: ATORVASTATIN 40 MG TAB PO SCH (20:39)
[2018-07-17] MEDS: LEVOTHYROXINE SOD 0.112 MG TAB PO SCH (06:37)
[2018-07-17 08:25] VITALS: BP 121/73
[2018-07-17 08:30] VITALS: BP 121/73
[2018-07-17] MEDS: ASPIRIN 81 MG ENTERIC COATED PO SCH (08:40)
[2018-07-17] MEDS: MAGNESIUM OXIDE 400 MG TAB PO SCH ×2 (08:40→20:28)
[2018-07-17] MEDS: POTASSIUM CHL PWDR 20 MEQ PKT PO SCH ×2 (08:40→17:26)
[2018-07-17] MEDS: TICAGRELOR 90 MG TABLET PO SCH ×2 (08:40→20:28)
[2018-07-17] MEDS: ACETAMINOPHEN 325 MG TAB PO PRN ×2 (08:41→20:28)
[2018-07-17 15:53] VITALS: BP 127/71
[2018-07-17] MEDS: ATORVASTATIN 40 MG TAB PO SCH (20:28)
[2018-07-18] MEDS: LEVOTHYROXINE SOD 0.112 MG TAB PO SCH (06:15)
[2018-07-18 08:00] VITALS: BP 146/63
[2018-07-18] MEDS: POTASSIUM CHL PWDR 20 MEQ PKT PO SCH ×2 (08:38→17:32)
[2018-07-18] MEDS: TICAGRELOR 90 MG TABLET PO SCH ×2 (08:38→20:38)
[2018-07-18] MEDS: ASPIRIN 81 MG ENTERIC COATED PO SCH (08:38)
[2018-07-18] MEDS: MAGNESIUM OXIDE 400 MG TAB PO SCH ×2 (08:38→20:38)
--- NOTE | 2018-07-18 10:27 | NUR ---
Occupational Therapy Impression SBA ambulation x100ft with no rest break and RW. Pt demonstrates improved safety with RW vs. 4WW. Mod (I) toileting. Mod (I) shower in standing. Independent UB dressing. Mod A LB dressing for adin hose. Discussed progression towards OT goals, plan to continue working on endurance and (I) with adin hose. Pt amenable to consider home evaluation possibly Wednesday. VSS throughout tx. Occupational Therapy Goals 1) Pt will be Mod (I) UB/LB dressing. 2) Pt will be Mod (I) toilet task. 3) Pt will be Mod (I) grooming task. 4) Pt will be Mod (I) shower task. 5) Pt Tammy Index of ADLs score will improve by 2 points. 6) Pt will be educated on appropriate energy conservation techniques. 7) Pt will be Min A medication management task. Patient's Goal
[2018-07-18] MEDS: ACETAMINOPHEN 325 MG TAB PO PRN ×2 (14:44→20:38)
--- NOTE | 2018-07-18 15:33 | NUR ---
Physical Therapy Impression Pt progressing well with physical therapy and demonstrates safety with functional mobility including transfers, gait, and stairs. Recommend OP cardiac rehab at [place], however, Pt deciding between HH and OP. Physical Therapy Goals 1. Pt to be complete bed mobility supine to/from sit independently. 2. Pt to be able to complete transfers sit to/from stand with least restrictive device modified independent. 3. Pt to be able to ambulate 150' w/ least restrictive device SBA/Mod I. 4. Pt to be able to ascend/descend 4 steps without rail SBA. 5. Pt to be able to complete TUG test in 24 seconds with least restrictive device in order to decrease risk of falling. Patient's Goals
[2018-07-18 15:40] VITALS: BP 79/47
[2018-07-18] MEDS: ATORVASTATIN 40 MG TAB PO SCH (20:38)
[2018-07-19 08:10] VITALS: BP 125/70
[2018-07-19] MEDS: POTASSIUM CHL PWDR 20 MEQ PKT PO SCH ×2 (08:15→16:58)
[2018-07-19] MEDS: ASPIRIN 81 MG ENTERIC COATED PO SCH (08:16)
[2018-07-19] MEDS: MAGNESIUM OXIDE 400 MG TAB PO SCH ×2 (08:16→20:26)
[2018-07-19] MEDS: ACETAMINOPHEN 325 MG TAB PO PRN ×2 (08:16→17:00)
[2018-07-19] MEDS: TICAGRELOR 90 MG TABLET PO SCH ×2 (08:16→20:26)
--- NOTE | 2018-07-19 10:57 | Medical Nutrition Therapy ---
Nutrition Anthropometrics Height (Inches): 67.00 Height (Calculated Centimeters: 170.224207 Weight (Pounds): 173 Weight (Calculated Kilograms): 78.471 BMI: 27.1 Arsenio Nutrition Score: Adequate Arsenio Nutrition Risk Score: 19 Dietary Referral Nutrition Risk Factors: Nutrition Risk Comment: Nutritional Diagnosis Nutritional Risk Acuity 3: Fair Appetite, Nutrit Anemia Nutritional Acuity: 3-Mild Energy Requirement: 1950 (25 kcal/kg) Protein Requirement: 78 (1gm/kg) Fluid Requirement: 1950 (25ml/kg) Diet Type: Cardiac Nutrition Intervention: Cont diet as ordered, Encourage intake, HS snack Nutritional Education Nutrition Education Topic: Cardiac Learning Readiness: Interested Teaching Methods: Discussion, Handout Response to Teaching: Verbalize understanding Teaching Recipient: Patient, Family Nutrition Counseling: Provided education and handout to pt and family on cardiac diet Nutrition Monitoring & Eval Nutrition Goals: Eat 75-100% Meal Nutrition Follow-Up: Good Intake RD Patient Assessment Time: [address] Assessment Type: RD Re-Assessment Patient Nutrition Acuity: 3-Mild Follow Up Date: Jul 27, 2018 Nutritional Comment: 07/14 Pt admitted post STEMT. Pt has dx of anemia. Pt is on cardiac diet and eating 75- 100%. Pt has 1+ edema LE. Anticipate wt loss when edema resolved. Will cont to monitor and encourage intake. ANDREY 07/19 Pt cont on cardiact diet. Provided education on diet to pt and family. Pt eating 75-100%. No new wt. Will cont to monitor and encourage intake. SCOTT MARTINEZ Jul 19, 2018 10:57
--- NOTE | 2018-07-19 11:28 | NUR ---
Dr. Jozef's appt. Patient was made independent in room by Mariella Grant PT, on 07/18/18 per Mariella to this RN. Patient went out on pass at [address] to see Dr. Dillard; he left in a wheelchair pushed by his but returned walking with his walker, tolerating the walk well.
--- NOTE | 2018-07-19 11:59 | NUR ---
Occupational Therapy Impression Pt demonstrating improved (I) with LB dressing tolerance for functional mobility this date. Progressing well towards goals. Pt declines further goals to be addressed. Will begin discharge planning this afternoon at care conference with spouse. Occupational Therapy Goals 1) Pt will be Mod (I) UB/LB dressing. 2) Pt will be Mod (I) toilet task. 3) Pt will be Mod (I) grooming task. 4) Pt will be Mod (I) shower task. 5) Pt Tammy Index of ADLs score will improve by 2 points. 6) Pt will be educated on appropriate energy conservation techniques. 7) Pt will be Min A medication management task. Patient's Goal
[2018-07-19 18:19] VITALS: BP 132/74
[2018-07-19] MEDS: ATORVASTATIN 40 MG TAB PO SCH (20:26)
[2018-07-20 07:34] LABS: PLATELET COUNT, AUTOMATED 435 K/uL (150-450)
[2018-07-20 08:00] VITALS: BP 110/57
[2018-07-20] MEDS: FINASTERIDE 5 MG TAB PO SCH (08:35)
[2018-07-20] MEDS: TICAGRELOR 90 MG TABLET PO SCH ×2 (08:35→19:49)
[2018-07-20] MEDS: ASPIRIN 81 MG ENTERIC COATED PO SCH (08:35)
[2018-07-20] MEDS: ACETAMINOPHEN 325 MG TAB PO PRN ×2 (08:36→19:49)
[2018-07-20] MEDS: POTASSIUM CHL PWDR 20 MEQ PKT PO SCH ×2 (08:36→17:00)
[2018-07-20] MEDS: MAGNESIUM OXIDE 400 MG TAB PO SCH ×2 (08:36→19:50)
--- NOTE | 2018-07-20 14:13 | NUR ---
MDS completed with pt. C: 15, D: 03, E: no concerns, Q: referral already made for pt to return to community with [facility]. Pt reports no further needs or concerns for DC.
--- NOTE | 2018-07-20 14:23 | Hospitalist Progress Note ---
Subjective Progress Notes Subjective Patient denies any complaints. Physical Exam Vital Signs Date Time Temp Pulse Resp B/P (MAP) Pulse Ox O2 Delivery O2 Flow Rate FiO2 07/20/18 10:18 97 Room Air 07/20/18 08:00 98.0 92 18 110/57 (74) Intake and Output 07/20/18 07:00 Intake Total 990 ml Balance 990 ml Intake Oral 990 ml # Voids 1 # Bowel Movements 0 General Appearance: Alert, Awake, No Acute Distress Neuro: No Gross deficits Eyes: PERRLA Cardiovascular: Regular Rate and Rhythm Respiratory: Clear to Auscultation GI: Soft and Non-Tender Extremities: Warm, Perfused, Edema (Trace to 1+.) Psych: Appropriate Mood & Affect Result Diagram: 07/20/1852407/20/18525 Assessment and Plan Problems: (1) Weakness Status: Acute Assessment & Plan: Secondary to prolonged hospitalization after STEMI. PT/OT consulted. Patient improving. (2) ANEMIA, UNSPECIFIED Status: Acute Assessment & Plan: Appears to be due to blood loss from hematuria, large femoral hematoma and GI tract after being started on dual anti platelet therapy. Hgb improving. (3) STEMI (ST elevation myocardial infarction) Status: Resolved Assessment & Plan: Post 4 SUZANNE to RCA. Continue ASA, Brilinta and statin. 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 The patient also had a PSA which was elevated. Cytology or imaging should be pe rformed outpatient to rule out malignancy. The patient will f/u with Dr. Dillard as an OP. Time Spent on Plan of Care: < 30 min YASMINE GREGORY MD Jul 20, 2018 14:23
[2018-07-20] MEDS ORDERED: TICA90TA PO (14:28)
[2018-07-20] MEDS ORDERED: NIT4 SL (14:28)
[2018-07-20] MEDS ORDERED: ATOR40TA69 PO (14:28)
[2018-07-20] MEDS ORDERED: POTA20PA25 PO (14:30)
--- NOTE | 2018-07-20 14:37 | Hospitalist Depart ---
Discharge Summary Reason for Hosp/Final Diag: (1) Weakness Status: Acute Hospital Course & Plan: Secondary to prolonged hospitalization after STEMI. PT/OT consulted. Patient improved and was discharged to home with ongoing PT and OT through Home Health. (2) ANEMIA, UNSPECIFIED Status: Acute Hospital Course & Plan: Appears to be due to blood loss from hematuria, large femoral hematoma and GI tract after being started on dual anti platelet therapy. Hgb improving. He will need close follow up with his PCP. (3) STEMI (ST elevation myocardial infarction) Status: Resolved Hospital Course & Plan: Post 4 SUZANNE to RCA. Continued on ASA, Brilinta and statin. Has significant disease in LCA which may be addressed after out of rehab period from STEMI. (4) Enlarged prostate with urinary retention Status: Chronic Hospital Course & Plan: Dr Elam saw patient 07/19/18 and started finasteride. The patient also had a PSA which was elevated. Cytology or imaging should be performed outpatient to rule out malignancy. The patient will f/u with Dr. Elam as an OP. (5) Hypomagnesemia Status: Acute Hospital Course & Plan: The patient was started on magnesium replacement while at [facility]. He did develop diarrhea while on ECF. The magnesium was discontinued. He will need recheck of his magnesium by his PCP as an OP. (6) Hypokalemia Status: Acute Hospital Course & Plan: The patient was started on potassium replacement while at [facility]. He was continued on 20meq twice daily at discharge and will need to have his potassium rechecked as an OP by his PCP. 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 Follow Up For: ADL Assistance Time Spent: < 30 min Discharge Instructions Home Meds Active Scripts Potassium Chloride (POTASSIUM CHLORIDE) 20 Meq Packet, 20 MEQ PO BID, #60 PACKET Prov:YASMINE GREGORY MD 07/20/18 Ticagrelor (BRILINTA) 90 Mg Tablet, 90 MG PO BID, #180 TAB Prov:YASMINE GREGORY MD 07/20/18 Nitroglycerin (NITROSTAT) 0.4 Mg Subl, 0.4 MG SL PRN PRN for CHEST PAIN, #1 BOTTLE Prov:YASMINE GREGORY MD 07/20/18 Atorvastatin Calcium (ATORVASTATIN CALCIUM) 40 Mg Tablet, 80 MG PO QHS, #90 TAB Prov:YASMINE GREGORY MD 07/20/18 Levothyroxine Sodium (LEVOTHYROXINE SODIUM) 0.112 Mg Tab, 1 TAB PO 5XW for 45 Days, #45 TAB Please get lab work done a few days prior to running out of this medication. Orders are at [facility]. Prov:NIDIA JOSEPH MD 06/09/18 Cyclobenzaprine Hcl (CYCLOBENZAPRINE HCL) 5 Mg Tablet, 1 TAB PO BID PRN for SPASMS, #90 TAB 3 Refills Prov:JAGDISH MARTÍNEZ MD 05/18/18 Tramadol Hcl (TRAMADOL HCL) 50 Mg Tablet, 25-50 MG PO 1-2XD PRN for PAIN, #30 TAB 0 Refills Prov:NIDIA JOSEPH MD 04/20/18 Omeprazole (OMEPRAZOLE) 20 Mg Capsule.dr, 1 CAP PO QODAY for 90 Days, #45 CAP 4 Refills Prov:NIDIA JOSEPH MD 01/13/18 Reported Medications Oxygen (OXYGEN) Inha, 2 L INH HS, L 12/23/17 Mills-3 Fatty Acids/Fish Oil (FISH OIL 1,000 MG SOFTGEL) 1 Each Capsule, 1 CAP PO BID, CAPSULE 12/23/17 Saw Paden Fruit (SAW PALMETTO) 450 Mg Capsule, 1 CAP PO BID, CAPSULE 12/23/17 Glucosa Barajas 2KCL/Chondroitin Barajas (GLUCOSAMINE & CHONDROITIN CAP) 1 Each Capsule, 2 CAP PO BID, CAPSULE 12/23/17 Cyanocobalamin (Vitamin B-12) (Vitamin B-12) 1,000 Mcg Capsule, 1 CAP PO QDAY 12/23/17 Cholecalciferol (Vitamin D3) (VITAMIN D3) 1,000 Unit Tablet, 1 TAB PO QDAY, TAB 12/23/17 Triamcinolone Acetonide 0.1% Oint 15 Gm Tube (TRIAMCINOLONE ACETONIDE 0.1% 15 GM TUBE) 15 Gm Oint...g., 1 SAMANTA TP PRN, TUBE 12/23/17 Clobetasol Propionate/Emoll (CLOBETASOL EMOLLNT 0.05% FOAM) 50 Gm Foam, 1 SAMANTA TP BID 12/23/17 Ketoconazole (KETOCONAZOLE) Unknown Strength Cream..g., TP BID, #15 TUBE 12/23/17 Multivitamin (DAILY MULTIPLE VITAMIN) 1 Each Tablet, 1 TAB PO DAILY 12/23/17 Aspirin (ASPIR 81) 81 Mg Tablet.dr, 1 TAB PO HS, TAB 12/23/17 Acetaminophen 500 Mg Tab (ACETAMINOPHEN EXTRA STRENGTH) 500 Mg Tablet, 2 TAB PO HS, TAB 12/23/17 [XLear] No Conflict Check, 1 SPRAY NS PRN 12/23/17 Lactobacillus Combo No.10 (PROBIOTIC) 1 Each Capsule, 1 EACH PO QDAY, CAPSULE 12/23/17 Finasteride (FINASTERIDE) 5 Mg Tablet, 1 TAB PO HS 12/23/17 Discontinued Reported Medications Cyclobenzaprine Hcl (CYCLOBENZAPRINE HCL) 10 Mg Tablet, 10 MG PO TID, #9 TAB 07/14/18 Vit C/E/Zn/Coppr/Lutein/Zeaxan (Preservision Areds 2 Softgel) 1 Each Capsule, 1 CAP PO BID 12/23/17 Minocycline Hcl (MINOCYCLINE HCL) 100 Mg Tablet, 1 TAB PO QDAY PRN for PRN, CAPSULE 12/23/17 Diet: Regular Activity: As Tolerated Special Instructions: The patient is to follow up with Dr. Elam as an outpatient. He should call to schedule an appointment. He is to follow up with [facility] Cardiology. Appointment to be made prior to discharge from [facility]. The patient is to follow up with Dr. Joseph in 1-2 weeks. He will need recheck of his CBC and BMP. Copies to: NIDIA JOSEPH MD; MARIA D SEVILLA MD; TRUDY ELAM MD ; Venous Thromboembolism Antithrombotics Is Pt On Any Antithrombotics?: No (early ambulation and high risk for serious bleed with DAPT and anticoagulation) YASMINE GREGORY MD Jul 20, 2018 14:37
[2018-07-20 16:10] VITALS: BP 118/60
[2018-07-20] MEDS: ATORVASTATIN 40 MG TAB PO SCH (19:50)
[2018-07-21] MEDS: LEVOTHYROXINE SOD 0.112 MG TAB PO SCH (05:37)
--- NOTE | 2018-07-21 08:17 | NUR ---
OCCUPATIONAL THERAPY Dressing Assistance: Independent including adin hose Dressing Aid Required: None. Educated for use of sock aid, able to complete LB dressing without. Bathing Assistance: Mod (I) Bathing Equipment: Shower Chair Home Assessment: Not Completed-Will benefit from home evaluation and recommendations for home adaptation with HH services. Feeding Assistance: Independent Feeding Specialized Equipment: None Toilet Use: Independent Verbalizes Needs: Yes Understands Precautions: Yes Cooperative: Yes Family Teaching: No Occupational Therapy Comment: Pt will benefit from continued OT services to improve endurance for IADLs, (I) for UB HEP, and engage in home modifications/energy conservation strategies.
--- NOTE | 2018-07-21 08:28 | OT ECF NOTE ---
Type of Note: Discharge Note Primary Medical Diagnosis: Generalized weakness s/p OK Occupational Therapy Evaluation Date: 07/14/18 SUBJECTIVE: Prior Hospitalization: Transferred from [facility] to [facility] 07/05/18. At [facility] 07/05/18 thru 07/13/18. Prior Level of Function: Prior to admission, pt was (I) with ADLs/IADLs (driving/med management). Ambulating with a cane. Prior Living Status: Bi-level house, Spouse Community Services: Support adequate, No known needs Home Accessibility: Stairs with rails All needs on one level Basement in home Walk-in shower Equipment Owned: Front wheeled walker Cane Toilet riser Tub/shower chair Medical Complications/Past Medical History: Please see EMR Psychosocial Support: Spouse and daughter in town. Pain Scale (0-10): No report of pain at time of discharge OBJECTIVE: Strength: MMT: Right Left Shoulder Flexion WFL WFL Elbow Flexion WFL WFL Wrist Extension WFL WFL Underwriting Operations Manager WFL WFL (5= normal, 4= good, 3= fair, 2= poor, 1= trace) ROM: Both upper extremities, WFL Functional Transfer: Assistive Device: Front wheeled walker Transfer Ability: Modified Independent ADL: Upper body dressing: Assistive device: None Upper body dressing ability: Independent Lower body dressing: Assistive device: None-Educated on sock aid. Able to complete without AE. Lower body dressing ability: Independent. Including adin hose. Toileting: Assistive device: None Toileting ability: Independent Grooming/hygiene: Assistive device: None Grooming ability: Independent Bathing: Assistive device: Shower chair Bathing ability: Modified Independent Standardized Assessment: Tammy Index of Activities of Daily Livin/20 upon initial evaluation (07/14/18). 20/20 upon discharge (07/21/18). ASSESSMENT: William presented to [facility] with decreased endurance and (I) with ADLs s/p OK and extended hospital admission. He has met all skilled OT goals and presents with no further questions/concerns at this time. Information has been provided re: energy conservation and [facility] services. Short Term Goals: 1) Pt will be Mod (I) UB/LB dressing. GOAL MET 2) Pt will be Mod (I) toilet task. GOAL MET 3) Pt will be Mod (I) grooming task. GOAL MET 4) Pt will be Mod (I) shower task. GOAL MET 5) Pt Tammy Index of ADLs score will improve by 2 points. GOAL MET 6) Pt will be educated on appropriate energy conservation techniques. GOAL MET 7) Pt will be Min A medication management task. Not addressed-Pt declined to engage in med management task. Senior Living Goals: Return home with services Patient Goals: "Get back to what I was doing before this episode" Rehabilitation Prognosis: Good Barriers to Discharge: None noted at this time PLAN: The patient will discharge home with services. Information provided to pursue cardiac rehab. Thank you for this referral. If you have any questions, concerns, or comments about this report or plan, please contact me at . Valentina Guillermo MS, OTR/L Occupational Therapist [facility]
[2018-07-21] MEDS: TICAGRELOR 90 MG TABLET PO SCH (08:41)
[2018-07-21] MEDS: FINASTERIDE 5 MG TAB PO SCH (08:41)
[2018-07-21] MEDS: MAGNESIUM OXIDE 400 MG TAB PO SCH (08:41)
[2018-07-21] MEDS: ASPIRIN 81 MG ENTERIC COATED PO SCH (08:41)
[2018-07-21] MEDS: POTASSIUM CHL PWDR 20 MEQ PKT PO SCH (08:41)
[2018-07-21 10:00] VITALS: BP 117/43
--- NOTE | 2018-07-21 17:19 | PT ECF NOTE ---
Type of Note: Discharge Note Primary Medical Diagnosis: Generalized weakness s/p MD Physical Therapy Evaluation Date: 07/14/18 SUBJECTIVE: Prior Hospitalization: Transferred from [facility] to [facility] 07/05/18. At [facility] 07/05/18 thru 07/13/18. Prior Level of Function: Prior to admission, pt was (I) with ADLs/IADLs (driving/med management). Ambulating with a cane. Prior Living Status: Bi-level house, Spouse Community Services: Support adequate, No known needs Home Accessibility: Stairs with rails All needs on one level Basement in home Walk-in shower Equipment Owned: Front wheeled walker Cane Toilet riser Tub/shower chair Medical Complications/Past Medical History: Please see EMR Psychosocial Support: Spouse and daughter in town. Pain Scale (0-10): No report of pain at time of evaluation OBJECTIVE: Strength: 5/5 with all MMT of LE's Bed Mobility: Modified indep Transfers: Modified indep with FWW Gait: 300' with FWW and one sitting rest break with HR and O2 in safe range Stairs: Pt tolerated [id number] pattern and use of rail for up/down 4 steps and HR/O2 in safe range on room air. Timed Up and Go (>12 seconds indicated increased risk for falls): Unable to re-eval due to pt's departure before scheduled PT visit on d/c. ASSESSMENT: Problem List/Current Limitations: Pt continues to fatigue with activity but is aware of energy conservation techniques and will have C. Short Term Goals: (Met) 1. Pt to be complete bed mobility supine to/from sit independently. 2. Pt to be able to complete transfers sit to/from stand with least restrictive device modified independent. 3. Pt to be able to ambulate 150' w/ least restrictive device SBA/Mod I. 4. Pt to be able to ascend/descend 4 steps without rail SBA. 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 Thank you for this referral. If you have any questions, concerns, or comments about this report or plan, please contact me at . H. Veronica Devlin, PT, MPT, OMS MTDD
== END 2018-07-21 10:25 | disposition home health service (06) | DRG 948 ==
LOC: ECF 16:01
PROVIDERS: ADMIT Internal Medicine; ATTEND Internal Medicine
DX: R53.1 Weakness (principal); D50.0 Iron deficiency anemia secondary to blood loss (chronic); N40.1 Benign prostatic hyperplasia with lower urinary tract symptoms; R33.8 Other retention of urine; E83.42 Hypomagnesemia; E87.6 Hypokalemia; I25.2 Old myocardial infarction; Z95.5 Presence of coronary angioplasty implant and graft
CPT/HCPCS: 36415; 82310; 82374; 82435; 82565; 82947; 84132; 84153; 84295; 84520; 85025; 97161; 97165

== ENCOUNTER 2018-08-07 19:46 | Emergency (ER) | payer MEDICARE, OTHER ==
[~2018-08-07 19:46] MED LIST changes: +ATOR40TA69 PO; +NIT4 SL; +POTA20PA25 PO; +TICA90TA PO
--- NOTE | 2018-08-07 20:13 | ER Report ---
History and Physical Time Seen By MD: 20:13 Hx. of Stated Complaint: PATIENT STATES HE HAS BEEN HAVING PROBLEMS SWOLLOWING, IRRITATION IN HIS THORAT SINCE HE HAS BEEN HOME RECOVERING FROM HEART ATTACK, PATIENT STATES HE WAS INTUBATED DURING SURGERY AND HAD 4STENTS PLACED IN HEART. HPI/ROS CHIEF COMPLAINT: cough HISTORY OF PRESENT ILLNESS: This is an 88 year old male. He has been having slowly worsening cough, nonproductive. Has been worsening over several weeks, since he was intubated during UT and stenting in early July. Has a little bit of hoarse voice with this. Has had some trouble swallowing pills, but does not note trouble swallowing food or fluids. He does not feel a fullness in his throat. He had a dry cough that feels like he needs to get mucous up, but it does not come up. Throat feels irritated. No problems with acid reflux or heart burn symptoms. He is not taking any NOMRA inhibitors. He has never had trouble with his swallowing in the past. No abdominal pain. No nausea or vomiting. Allergies: Coded Allergies: adhesive (Verified Allergy, Mild, WELTS, 08/07/18) tamsulosin (Verified Allergy, Unknown, Dizziness, 08/07/18) Home Meds Active Scripts Fluticasone Prop 50 Mcg Ns (FLONASE 50 MCG NS) 16 Gm [place].susp, 2 SPRAYS NS QDAY, #1 BOT 0 Refills Prov:DAWOOD DE LA TORRE MD 08/07/18 Ticagrelor (BRILINTA) 90 Mg Tablet, 90 MG PO BID, #180 TAB Prov:YASMINE GREGORY MD 07/20/18 Nitroglycerin (NITROSTAT) 0.4 Mg Subl, 0.4 MG SL PRN PRN for CHEST PAIN, #1 BOTTLE Prov:YASMINE GREGORY MD 07/20/18 Atorvastatin Calcium (ATORVASTATIN CALCIUM) 40 Mg Tablet, 80 MG PO QHS, #90 TAB Prov:YASMINE GREGORY MD 07/20/18 Levothyroxine Sodium (LEVOTHYROXINE SODIUM) 0.112 Mg Tab, 1 TAB PO 5XW for 45 Days, #45 TAB Please get lab work done a few days prior to running out of this medication. Orders are at [facility]. Prov:NIDIA JOSEPH MD 06/09/18 Omeprazole (OMEPRAZOLE) 20 Mg Capsule.dr, 1 CAP PO QODAY for 90 Days, #45 CAP 4 Refills Prov:NIDIA JOSEPH MD 01/13/18 Reported Medications Oxygen (OXYGEN) Inha, 2 L INH HS, L 12/23/17 [place]-3 Fatty Acids/Fish Oil (FISH OIL 1,000 MG SOFTGEL) 1 Each Capsule, 1 CAP PO BID, CAPSULE 12/23/17 Saw [place] Fruit (SAW PALMETTO) 450 Mg Capsule, 1 CAP PO BID, CAPSULE 12/23/17 Glucosa Barajas 2KCL/Chondroitin Barajas (GLUCOSAMINE & CHONDROITIN CAP) 1 Each Capsule, 2 CAP PO BID, CAPSULE 12/23/17 Cyanocobalamin (Vitamin B-12) (Vitamin B-12) 1,000 Mcg Capsule, 1 CAP PO QDAY 12/23/17 Cholecalciferol (Vitamin D3) (VITAMIN D3) 1,000 Unit Tablet, 1 TAB PO QDAY, TAB 12/23/17 Triamcinolone Acetonide 0.1% Oint 15 Gm Tube (TRIAMCINOLONE ACETONIDE 0.1% 15 GM TUBE) 15 Gm Oint...g., 1 SAMANTA TP PRN, TUBE 12/23/17 Clobetasol Propionate/Emoll (CLOBETASOL EMOLLNT 0.05% FOAM) 50 Gm Foam, 1 SAMANTA TP BID 12/23/17 Ketoconazole (KETOCONAZOLE) Unknown Strength Cream..g., TP BID, #15 TUBE 12/23/17 Multivitamin (DAILY MULTIPLE VITAMIN) 1 Each Tablet, 1 TAB PO DAILY 12/23/17 Aspirin (ASPIR 81) 81 Mg Tablet.dr, 1 TAB PO HS, TAB 12/23/17 Acetaminophen 500 Mg Tab (ACETAMINOPHEN EXTRA STRENGTH) 500 Mg Tablet, 2 TAB PO HS, TAB 12/23/17 [XLear] No Conflict Check, 1 SPRAY NS PRN 12/23/17 Lactobacillus Combo No.10 (PROBIOTIC) 1 Each Capsule, 1 EACH PO QDAY, CAPSULE 12/23/17 Finasteride (FINASTERIDE) 5 Mg Tablet, 1 TAB PO HS 12/23/17 Discontinued Scripts Potassium Chloride (POTASSIUM CHLORIDE) 20 Meq Packet, 20 MEQ PO BID, #60 PACKET Prov:YASMINE GREGORY MD 07/20/18 Reviewed Nurses Notes: Yes Smoking Status: Former Smoker Hx Substance Use Disorder: No Hx Alcohol Use: Yes Constitutional Vital Sign - Last 24 Hours 08/07/18 08/07/18 08/07/18 08/07/18 19:57 20:01 20:02 20:16 Temp 97.8 Pulse 121 103 99 Resp 24 12 9 B/P (MAP) 166/89 (114) Pulse Ox 94 95 94 O2 Delivery Room Air 08/07/18 08/07/18 08/07/18 08/07/18 20:32 20:46 21:00 21:01 Pulse 92 72 Resp 21 11 B/P (MAP) 130/81 (97) 128/70 (89) Pulse Ox 94 91 08/07/18 08/07/18 08/07/18 08/07/18 21:16 21:30 21:36 21:41 Pulse 65 89 84 Resp 11 20 20 B/P (MAP) 148/91 (110) Pulse Ox 93 92 92 08/07/18 08/07/18 08/07/18 08/07/18 21:56 22:00 22:11 22:30 Pulse 65 84 Resp 19 27 B/P (MAP) 123/77 (92) 137/95 (109) Pulse Ox 91 93 08/07/18 08/07/18 08/07/18 08/07/18 22:41 22:56 23:00 23:11 Pulse 74 81 87 Resp 14 15 20 B/P (MAP) 162/106 (124) Pulse Ox 94 95 94 08/07/18 23:16 Pulse 75 Resp 22 Pulse Ox 93 Physical Exam General Appearance: The patient is alert. No acute distress. Eyes: Pupils are equal, round. No pallor, injection or icterus. ENT: Mucous membranes are moist. Normal oral mucosa. Posterior oropharynx is normal. Normal tympanic membranes and canals. Neck: Supple and non tender. No lymphadenopathy. Respiratory: Lungs are clear to auscultation. Cardiovascular: Regular rate and rhythm. No murmurs, gallops or rubs. Normal capillary refill. Gastrointestinal: Abdomen is soft and non tender. Nondistended. Normal active bowel sounds. Neurological: Alert and oriented x3. No weakness or droop noted in face. Tongue is midline with symmetric palate elevation. Skin: No rashes. Musculoskeletal: No tenderness in palpation of the cervical area. No chest wall pain with palpation. DIFFERENTIAL DIAGNOSIS: After history and physical exam, differential diagnosis was considered for cough and concern about throat and swallowing. Possible causes of cough to be pulmonary infectious process, vocal cord dysfunction or other throat dysfunction causing some aspiration, reflux/acid problems, medication effect. Medical Decision Making Data Points Result Diagram: 08/07/18203808/07/182038 Laboratory Hematology Test 08/07/18 20:39 Red Blood Count 4.72 M/uL (4.00-5.60) Mean Corpuscular Volume 91.7 fL (80.0-96.0) Mean Corpuscular Hemoglobin 29.9 pg (26.0-33.0) Mean Corpuscular Hemoglobin Concent 32.6 g/dL (32.0-36.0) Red Cell Distribution Width 14.3 % (11.5-14.5) Mean Platelet Volume 6.7 fL (7.2-11.1) Neutrophils (%) (Auto) 67.5 % (39.4-72.5) Lymphocytes (%) (Auto) 22.4 % (17.6-49.6) Monocytes (%) (Auto) 6.3 % (4.1-12.4) Eosinophils (%) (Auto) 2.8 % (0.4-6.7) Basophils (%) (Auto) 1.0 % (0.3-1.4) Nucleated RBC Relative Count (auto) 0.1 /100WBC Neutrophils # (Auto) 4.4 K/uL (2.0-7.4) Lymphocytes # (Auto) 1.5 K/uL (1.3-3.6) Monocytes # (Auto) 0.4 K/uL (0.3-1.0) Eosinophils # (Auto) 0.2 K/uL (0.0-0.5) Basophils # (Auto) 0.1 K/uL (0.0-0.1) Nucleated RBC Absolute Count (auto) 0.00 K/uL Sodium Level 139 mmol/L (137-145) Potassium Level 3.7 mmol/L (3.5-5.0) Chloride Level 105 mmol/L (98-107) Carbon Dioxide Level 23 mmol/L (22-30) Blood Urea Nitrogen 15 mg/dl (9-21) Creatinine 0.90 mg/dl (0.66-1.25) Glomerular Filtration Rate Calc > 60.0 Random Glucose 87 mg/dl (75-110) Calcium Level 8.8 mg/dl (8.4-10.2) Total Bilirubin 0.9 mg/dl (0.2-1.3) Aspartate Amino Transf (AST/SGOT) 32 U/L (0-35) Alanine Aminotransferase (ALT/SGPT) 30 U/L (0-56) Alkaline Phosphatase 79 U/L (0-126) Total Protein 8.3 g/dl (6.3-8.2) Albumin 4.2 g/dl (3.5-5.0) Chemistry Test 08/07/18 20:39 White Blood Count 6.5 k/uL (4.5-11.0) Red Blood Count 4.72 M/uL (4.00-5.60) Hemoglobin 14.1 g/dL (14.0-18.0) Hematocrit 43.3 % (42.0-52.0) Mean Corpuscular Volume 91.7 fL (80.0-96.0) Mean Corpuscular Hemoglobin 29.9 pg (26.0-33.0) Mean Corpuscular Hemoglobin Concent 32.6 g/dL (32.0-36.0) Red Cell Distribution Width 14.3 % (11.5-14.5) Platelet Count 271 K/uL (150-450) Mean Platelet Volume 6.7 fL (7.2-11.1) Neutrophils (%) (Auto) 67.5 % (39.4-72.5) Lymphocytes (%) (Auto) 22.4 % (17.6-49.6) Monocytes (%) (Auto) 6.3 % (4.1-12.4) Eosinophils (%) (Auto) 2.8 % (0.4-6.7) Basophils (%) (Auto) 1.0 % (0.3-1.4) Nucleated RBC Relative Count (auto) 0.1 /100WBC Neutrophils # (Auto) 4.4 K/uL (2.0-7.4) Lymphocytes # (Auto) 1.5 K/uL (1.3-3.6) Monocytes # (Auto) 0.4 K/uL (0.3-1.0) Eosinophils # (Auto) 0.2 K/uL (0.0-0.5) Basophils # (Auto) 0.1 K/uL (0.0-0.1) Nucleated RBC Absolute Count (auto) 0.00 K/uL Glomerular Filtration Rate Calc > 60.0 Calcium Level 8.8 mg/dl (8.4-10.2) Total Bilirubin 0.9 mg/dl (0.2-1.3) Aspartate Amino Transf (AST/SGOT) 32 U/L (0-35) Alanine Aminotransferase (ALT/SGPT) 30 U/L (0-56) Alkaline Phosphatase 79 U/L (0-126) Total Protein 8.3 g/dl (6.3-8.2) Albumin 4.2 g/dl (3.5-5.0) EKG/Imaging Imaging CT CHEST (CONTRAST) HISTORY: Cough. Difficulty swallowing. COMPARISON: 01/29/[address] Chest x-rays 07/05/2018 and studies dating to 03/01/2006. CT soft tissue neck was performed at the same time as the current examination. TECHNIQUE: Axial images were obtained from the thoracic inlet through the upper abdomen with intravenous contrast. Sagittal and coronal reformats were performed. One of the following dose optimization techniques was utilized in the performance of this exam: Automated exposure control; adjustment of the mA and/or kV according to the patient's size; or use of an iterative reconstruction technique. Specific details can be referenced in the facility's radiology CT exam operational policy. CONTRAST: 75 mL IV Isovue-370. FINDINGS: Thoracic inlet: 4 mm low attenuating lesion in the right lobe of the thyroid is not of a size nor does it have worrisome features to warrant further evaluation or follow-up. Aorta: No dissection. The ascending aorta measures 3.5 x 3.3 cm. There is mild atherosclerosis of the aorta and its branches. Heart / Pericardium: The heart is normal. There is no pericardial effusion. There is moderate to severe coronary artery calcification. Mediastinum / Whit: Normal mediastinum. No lymphadenopathy. Lungs / Pleura: No pleural effusion. There is minimal scarring at the apices. There is mild right lower lobe atelectasis adjacent to spinal osteophytes. There is minimal atelectasis or scarring in the lingula and right middle lobe. No infiltrate. No pneumothorax. The airways are normal. Upper abdomen: Cholelithiasis. There is atrophy of the pancreatic neck. There is a 2.9 x 2.2 cm cyst in the uncinate process of the pancreas, previously 2.2 x 1.2 cm in 2011. Bones/vertebra/soft tissues: There is degenerative change of the glenohumeral and acromioclavicular joints. There is mild to moderate multilevel degenerative change of the spine. There is 3 mm anterolisthesis of T1 on T2. There is 2 mm anterolisthesis of T2 on T3. There is mild narrowing of the spinal canal at T3- 4, T7-T8, T12-L1, and L1-2. IMPRESSION: 1. No pneumonia. 2. Moderate to severe coronary artery calcification. 3. Ascending aorta measures 3.5 cm maximal diameter, previously 3.4 cm. 4. Enlarging cyst/cystic lesion in the uncinate process of the pancreas. 5. Degenerative changes of the spine, glenohumeral joints, and acromioclavicular joints. Report Dictated By: Swathi Acuña at 08/07/2018 10:[address] SOFT TISSUE NECK W/CONTRAST HISTORY: Cough. Trouble swallowing. COMPARISON: CT soft tissue neck 01/29/2011. CT chest was performed at the same time as the current examination. TECHNIQUE: Axial images were obtained from the hard palate through the upper chest. Sagittal and coronal reformatted images were also obtained. One of the following dose optimization techniques was utilized in the perfo rmance of this exam: Automated exposure control; adjustment of the mA and/or kV according to the patient's size; or use of an iterative reconstruction technique. Specific details can be referenced in the facility's radiology CT exam operational policy. CONTRAST: 75 mL of IV Isovue-370. FINDINGS: Visualized orbits, brain, paranasal sinuses, and mastoids: Visible orbits and brain are normal. There is mild calcified atherosclerosis of the cavernous internal carotid arteries. There is a small to moderate air-fluid level in the left maxillary sinus. There is mild mucosal thickening of the ethmoid sinuses. There is mild mucosal thickening of the right maxillary sinus. Mastoids are clear. Soft tissues: Normal. Oral cavity: Normal. There is streak artifact from dental amalgam. Pharynx/larynx: Normal. Epiglottis is normal. Thyroid: Normal. Vessels: There is mild atherosclerosis of the aortic arch and its branches and at the carotid bifurcations. Lymph node assessment: No adenopathy. Bones/vertebra/musculoskeletal: There changes of anterior fusion from C3 through C6, unchanged. Hardware is intact. 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 There is 2 mm retrolisthesis of C6 compared to C7, new. There is mild narrowing of the spinal canal at C3-4, C4-5, and C6-7. Prevertebral soft tissues are within normal limits. There is pannus formation at C1-2 that causes moderate to severe narrowing of the spinal canal. It has progressed (sagittal image 36). Upper chest: There is minimal scarring at the apices. IMPRESSION: 1. Unremarkable soft tissue neck. 2. 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 3. There is now moderate to severe narrowing of the spinal canal at C1-2 secondary to progression of pannus formation. 4. Sinus disease with air-fluid level in the left maxillary sinus, compatible with active sinus disease. Report Dictated By: Swathi Acuña at 08/07/2018 10:20 PM ED Course/Re-evaluation Clinical Indication for ER IV: IV Access ED Course Labs unremarkable. CT scans with chronic problems, but no acute cardiopulmonary process. Sinuses that were seen with some fluid in the maxillary sinuses, but the posterior oropharynx looks good. Recommended further ENT evaluation with starting some Flonase initially and further evaluation by ENT. Decision to Disposition Date: Aug 07, 2018 Decision to Disposition Time: 23:42 Depart Departure Latest Vital Signs Vital Signs Date Time Temp Pulse Resp B/P (MAP) Pulse Ox O2 Delivery O2 Flow Rate FiO2 08/07/18 23:16 75 22 93 08/07/18 23:00 162/106 (124) 08/07/18 19:57 97.8 Room Air Impression: Primary Impression: Cough Condition: Improved Disposition: HOME OR SELF-CARE Referrals: NIDIA JOSEPH MD (PCP) New Scripts Fluticasone Prop 50 Mcg Ns (FLONASE 50 MCG NS) 16 Gm [place].susp 2 SPRAYS NS QDAY, #1 BOT 0 Refills Prov: DAWOOD DE LA TORRE MD 08/07/18 Patient Instructions: Acute Cough (ED), Sinusitis (ED) Additional Instructions: Make a follow-up appointment to see the ENT physician, Dr. Burnett. Call in the morning for an appointment. Consider further evaluation with speech therapy for swallow evaluation. Use Flonase nasal spray to reduce inflammation until you see Dr. Burnett. Flonase spray, 2 sprays per nostril once a day. Follow-up with your embroidery specialist this week as planned. DAWOOD DE LA TORRE MD Aug 07, 2018 20:13
[2018-08-07 20:48] LABS: PLATELET COUNT, AUTOMATED 271 K/uL (150-450)
[2018-08-07] MEDS ORDERED: IOPAMIDOL 76% 75 ML INFUS BTL 75 ML ONE (20:55)
--- NOTE | 2018-08-07 22:36 | RADIOLOGY IMAGING REPORT ---
FACILITY: [facility] - [place] PATIENT NAME: William Espinoza : 1930 MR: [id number] V: [id number] EXAM DATE: ORDERING PHYSICIAN: DAWOOD DE LA TORRE TECHNOLOGIST: Location: [facility] Patient: William Espinoza : 1930 Visit/Account:[id number] Date of Sevice: 08/07/2018 CT SOFT TISSUE NECK W/CONTRAST HISTORY: Cough. Trouble swallowing. COMPARISON: CT soft tissue neck 01/29/2011. CT chest was performed at the same time as the current exa mination. TECHNIQUE: Axial images were obtained from the hard palate through the upper chest. Sagittal and cody nal reformatted images were also obtained. One of the following dose optimization techniques was utilized in the performance of this exam: Autom ated exposure control; adjustment of the mA and/or kV according to the patient's size; or use of an i terative reconstruction technique. Specific details can be referenced in the facility's radiology CT exam operational policy. CONTRAST: 75 mL of IV Isovue-370. FINDINGS: Visualized orbits, brain, paranasal sinuses, and mastoids: Visible orbits and brain are normal. There is mild calcified atherosclerosis of the cavernous internal carotid arteries. There is a small to mo derate air-fluid level in the left maxillary sinus. There is mild mucosal thickening of the ethmoid s inuses. There is mild mucosal thickening of the right maxillary sinus. Mastoids are clear. Soft tissues: Normal. Oral cavity: Normal. There is streak artifact from dental amalgam. Pharynx/larynx: Normal. Epiglottis is normal. Thyroid: Normal. Vessels: There is mild atherosclerosis of the aortic arch and its branches and at the carotid bifurca tions. Lymph node assessment: No adenopathy. Bones/vertebra/musculoskeletal: There changes of anterior fusion from C3 through C6, unchanged. Hardw are is intact. 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 There is 2 mm retrolisthesis of C6 compared to C7, new. There is mild narrowing of th e spinal canal at C3-4, C4-5, and C6-7. Prevertebral soft tissues are within normal limits. There is pannus formation at C1-2 that causes moderate to severe narrowing of the spinal canal. It has progres sed (sagittal image 36). Upper chest: There is minimal scarring at the apices. IMPRESSION: 1. Unremarkable soft tissue neck. 2. Moderate to severe degenerative change of the cervical spine with mild spinal canal stenosis at C3 -4, C4-5, stable, and at C6-7, new. 3. There is now moderate to severe narrowing of the spinal canal at C1-2 secondary to progression of pannus formation. 4. Sinus disease with air-fluid level in the left maxillary sinus, compatible with active sinus disea se. Report Dictated By: Swathi Acuña at 08/07/2018 10:20 PM Report E-Signed By: Swathi Acuña at 08/07/2018 10:32 PM WSN:[id number]
--- NOTE | 2018-08-07 22:49 | RADIOLOGY IMAGING REPORT ---
[place] [facility] [place] NAME: William Espinoza : 1930 MR: [id number] V: [id number] EXAM DATE: ORDERING PHYSICIAN: DAWOOD DE LA TORRE TECHNOLOGIST: [place] [facility] [place]: William Espinoza : 1930 Visit/Account:[id number] Date of Sevice: 08/07/2018 CT CHEST (CONTRAST) HISTORY: Cough. Difficulty swallowing. COMPARISON: 01/29/[address] Chest x-rays 07/05/2018 and studies dating to 03/01/2006. CT soft tissu e neck was performed at the same time as the current examination. TECHNIQUE: Axial images were obtained from the thoracic inlet through the upper abdomen with intraven ous contrast. Sagittal and coronal reformats were performed. One of the following dose optimization techniques was utilized in the performance of this exam: Autom ated exposure control; adjustment of the mA and/or kV according to the patient's size; or use of an i terative reconstruction technique. Specific details can be referenced in the facility's radiology CT exam operational policy. CONTRAST: 75 mL IV Isovue-370. FINDINGS: Thoracic inlet: 4 mm low attenuating lesion in the right lobe of the thyroid is not of a size nor carmona s it have worrisome features to warrant further evaluation or follow-up. Aorta: No dissection. The ascending aorta measures 3.5 x 3.3 cm. There is mild atherosclerosis of the aorta and its branches. Heart / Pericardium: The heart is normal. There is no pericardial effusion. There is moderate to mello re coronary artery calcification. Mediastinum / Whit: Normal mediastinum. No lymphadenopathy. Lungs / Pleura: No pleural effusion. There is minimal scarring at the apices. There is mild right low er lobe atelectasis adjacent to spinal osteophytes. There is minimal atelectasis or scarring in the l ingula and right middle lobe. No infiltrate. No pneumothorax. The airways are normal. Upper abdomen: Cholelithiasis. There is atrophy of the pancreatic neck. There is a 2.9 x 2.2 cm cyst in the uncinate process of the pancreas, previously 2.2 x 1.2 cm in 2010. Bones/vertebra/soft tissues: There is degenerative change of the glenohumeral and acromioclavicular j oints. There is mild to moderate multilevel degenerative change of the spine. There is 3 mm anterolis thesis of T1 on T2. There is 2 mm anterolisthesis of T2 on T3. There is mild narrowing of the spinal canal at T3-4, T7-T8, T12-L1, and L1-2. IMPRESSION: 1. No pneumonia. 2. Moderate to severe coronary artery calcification. 3. Ascending aorta measures 3.5 cm maximal diameter, previously 3.4 cm. 4. Enlarging cyst/cystic lesion in the uncinate process of the pancreas. 5. Degenerative changes of the spine, glenohumeral joints, and acromioclavicular joints. Report Dictated By: Swathi Acuña at 08/07/2018 10:32 PM Report E-Signed By: Swathi Acuña at 08/07/2018 10:44 PM WSN:[id number]
[2018-08-07 23:00] VITALS: BP 162/106
[2018-08-07] MEDS ORDERED: FLUT16SP19 NS (23:43)
== END 2018-08-08 | disposition home or self-care (01) ==
LOC: ER 20:14
DX: R05 Cough (principal); R13.10 Dysphagia, unspecified
CPT/HCPCS: 70491; 71260; 84443; 85025; 99284; Q9967; 82040; 82247; 82310; 82374; 82435; 82565; 82947; 84075; 84132; 84155; 84295; 84450; 84460; 84520

== ENCOUNTER → 2018-09-21 | Outpatient (CLI) | payer MEDICARE, OTHER ==
[~2018-09-21] MED LIST changes: +AMOX500T10 PO; +ATOR-1 PO; +FLUT16SP19 NS; +METO25TA93 PO; +MINO100C27 PO
[2018-09-21 16:40] LABS: LDL CHOLESTEROL 43 mg/dl
== END ==
LOC: LAB 16:02
PROVIDERS: ATTEND Internal Medicine Cardiovascular Disease
DX: I25.10 Atherosclerotic heart disease of native coronary artery without angina pectoris (principal)
CPT/HCPCS: 36415; 82310; 82374; 82435; 82465; 82565; 82947; 83718; 84132; 84295; 84478; 84520

== ENCOUNTER → 2018-10-05 | Outpatient (CLI) | payer MEDICARE, OTHER | LOC: LAB 11:30 | PROVIDERS: ATTEND Physician Assistant | DX: E87.6 Hypokalemia (principal) | CPT/HCPCS: 36415; 82310; 82374; 82435; 82565; 82947; 84132; 84295; 84520 ==

== ENCOUNTER → 2018-10-19 | Outpatient (CLI) | payer MEDICARE, OTHER | LOC: LAB 11:13 | PROVIDERS: ATTEND Urology | DX: R97.20 Elevated prostate specific antigen [PSA] (principal) | CPT/HCPCS: 36415; 84154 ==

== ENCOUNTER → 2018-10-26 | Outpatient (CLI) | payer MEDICARE, OTHER ==
[2018-10-26 11:39] LABS: PLATELET COUNT, AUTOMATED 236 K/uL (150-450)
== END ==
LOC: LAB 10:51
PROVIDERS: ATTEND Family Medicine
DX: M79.10 Myalgia, unspecified site (principal); E03.9 Hypothyroidism, unspecified; I25.10 Atherosclerotic heart disease of native coronary artery without angina pectoris
CPT/HCPCS: 36415; 82040; 82247; 82310; 82374; 82435; 82550; 82565; 82947; 84075; 84132; 84155; 84295; 84443; 84450; 84460; 84520; 85025

== ENCOUNTER 2018-11-11 10:00 | Outpatient (RCR) | payer MEDICARE, OTHER ==
[2018-08-17 15:58] VITALS: BP 122/78
[2018-08-17 15:59] VITALS: BP 112/70
--- NOTE | 2018-08-17 16:20 | CARDIAC REHAB PLAN OF CARE ---
Physician: Bree Akers MD Patient is being seen: Christine Marte [facility] Diagnosis: STEMI; Stent x 4 Date of Onset: 07/05/18 Date of Initial Evaluation: 08/17/17 INTERVENTIONS: Due Date: 09/17/18 Patient Assessment: Patient is an 88yr old male who comes to cardiac rehab following a STEMI and Stent placement x 4 in July 2018. Patient has a history of untreated high cholesterol, GERD, and untreated sleep apnea. He is a normal BMI and since his STEMI has been doing exercises with home health. He is moderately motivated and has the primary goals of increasing his energy levels and stamina. Exercise Assessment: During his 6-Minute Walk test, the patient walked a total of 625ft for an average speed of 1.18mph. His HR was between 106-121bpm with SPO2 between 91-93%. Self-reported RPE varied 3-4, with the patient vocalizing that this was more exercise than he has done in recent past. While using exercise machines, the patient felt comfortable on both the NuStep and recumbent bike. He tolerated both machines well with a hemodynamic response within normal limits. HR between 105-112bpm, SPO2 92-95%, and BP increase to 138/82. ECG showed sinus tachycardia with frequent PVCs. The patient reported feeling more energetic during and following exercise than he did prior to exercise. Exercise Plan: Goals: Patient has the goals to increase stamina and energy levels. We hope to increase his exercise tolerance to accomplish these goals by 1. Increasing exercise duration towards 150 minutes/weeks of aerobic continuous exercise, and then 2. Increasing exercise intensity to moderate to vigorous MET levels (3-6). Exercise Prescription: Mode: Recumbent Bike and NuStep with supplemental laps on the track Frequency: 3 days/week (MWF) Duration: begin with 30 minutes of exercise and the progress to 50 minutes/session Intensity: 2.0-2.5 METs at first with THR of 105-115bpm Education: Education will focus on prioritizing leisure time physical activity at home on days away from cardiac rehab. Exercise Reassessment (Date: ): Exercise Discharge/Follow-Up (Date: ): Nutrition Assessment: Patients attended rehab evaluation and reports being the primary cook in the household. They eat a traditional English style diet. Patients favorite foods are eggs for breakfast and snacking on ice cream. They do not have a sound understanding of whole grains or healthy fats. Our goal will be to not change their diet drastically, but rather provide substitutions to the current foods they eat so as to make their choices more heart healthy. Nutrition Plan: Goals: Our goal will be to target small dietary changes that do not impede their dietary and nutritional intake, but rather make their favorite foods more heart healthy. Intervention: First task will be to target whole grains: changing their bread and pasta choices to ones with more whole fiber options and then by incorporating other whole grains such as brown rice and oats more regularly into their diet. Secondly, we will focus on increasing vegetable intake. Education: Education will focus on the importance of limiting white sugar and refined carbohydrates and how to identify then from a nutrition label. Nutrition Reassessment (Date: ): Nutrition Discharge/Follow-Up (Date: ): Psychosocial Assessment: Patient scored at the higher end of normal for anxiety (7/21) on the Hospital Anxiety and Depression Scale (HADS) assessment. While the patient appears to be rather conservative and formal, he does present with positive affect. He has a well formed understanding of his cardiac event and the goal of cardiac rehabilitation. He has a good support system at home with his and family. He understands the physiological need to exercise and seems moderately motivated to begin rehabilitation. Psychosocial Plan: Goals: Goals will be to continue supporting the patients already positive affect by fostering a healthy and safe learning/exercising environment. Intervention: Priority will rest with creating a healthy and supportive relationship with both the patient and his , and helping to develop a relationship with the patient and his fellow classmates. Education: Education will focus on the psychological effects of cardiovascular disease and how exercise can benefit individuals stress and depression levels. Psychosocial Reassessment (Date: ): Psychosocial Discharge/Follow-Up (Date: ): Physician Signature: Date: MTDD
[2018-08-19 13:10] VITALS: BP_SYST 106; BP_SYST 120; BP_DIAS 58; BP_DIAS 68
[2018-08-22 13:15] VITALS: BP 110/62
[2018-08-22 13:16] VITALS: BP 114/70
[2018-08-26 17:09] VITALS: BP 110/60
[2018-08-26 17:10] VITALS: BP 98/70
[2018-08-31 13:01] VITALS: BP 102/60
[2018-08-31 13:03] VITALS: BP 104/62
[2018-09-05 12:55] VITALS: BP 100/60
[2018-09-05 12:56] VITALS: BP 98/68
[2018-09-07 13:36] VITALS: BP 84/46
[2018-09-07 13:37] VITALS: BP 98/60
[2018-09-09 13:26] VITALS: BP 112/64
[2018-09-09 13:27] VITALS: BP 98/58
[2018-09-12 18:07] VITALS: BP 92/68
[2018-09-12 18:09] VITALS: BP 118/56
--- NOTE | 2018-09-15 11:08 | CARDIAC REHAB PLAN OF CARE ---
Physician: Bree Akers MD Patient is being seen: Christine Marte Medical Diagnosis: STEMI; Stent x 4 Date of Onset: 07/05/18 Date of Initial Evaluation: 08/17/18 Date patient was last seen: 09/12/18 Number of treatments: 9 Number of cancellations/No Shows: 3 INTERVENTIONS: Due Date: 10/13/18 Exercise Reassessment (Date: 09/15/18): Patient has been fairly consistent attending exercise sessionsmaking 04/13 this past month. However, the patient has not made much progress over the course of his first month, signifying we need to adjust our approach to his exercise routine. On average, the patient exercises for 20-25 minutes/sessionwell below our goal of 150 min/week. He has maintained his intensity near 1.5-2.0METs on average which is acceptable until he increases his stamina. However, he has not regularly achieved his THR zone. Lately, his exercising HR is between 94-105, which is below his THR (105- 120bpm) and barely above his average resting HR (92-96bpm). Over the next month, it is our goal to help adjust and motivate the patients exercise routine to accomplish the followin.Achieve a duration of at least 40 minutes/session of continuous exercise 2.Maintain an exercising HR between 105-120bpm We will need to supplement this routine with education explaining why these goals are important to achieve. Nutrition Reassessment (Date: 09/15/18): No information related to nutritional intake to provide at this time. We need to focus our attention on exercise first then we can switch to nutrition. Our first goal will be to gain a better understanding of common foods the patients eats weekly and find healthier alternatives for his favorite foods. Psychosocial Reassessment (Date: 09/15/18): Patient continues to have a strong support system as his comes to exercise with him. She is engaged with his education as well, which we will aim to focus towards the importance of consistencyboth with exercise and nutritionfor optimal health. Physician Signature: Date: MTDD
[2018-09-16 13:16] VITALS: BP 104/56
[2018-09-16 13:17] VITALS: BP 100/62
[2018-09-19 13:00] VITALS: BP 120/60
[2018-09-19 13:01] VITALS: BP 118/60
[2018-09-21 13:03] VITALS: BP 102/58
[2018-09-21 13:04] VITALS: BP 100/58
[2018-09-23 16:56] VITALS: BP 102/64
[2018-09-23 16:58] VITALS: BP 102/76
[2018-09-26 15:36] VITALS: BP_SYST 102; BP_DIAS 62; BP_DIAS 74
[2018-09-26 15:56] VITALS: BP 102/74
[2018-09-28 15:58] VITALS: BP 126/82
[2018-09-28 15:59] VITALS: BP 108/60
[2018-10-05 13:17] VITALS: BP 98/58
[2018-10-08 10:15] VITALS: BP 102/56
[2018-10-08 10:16] VITALS: BP 104/60
--- NOTE | 2018-10-11 14:47 | CARDIAC REHAB PLAN OF CARE ---
Physician: Bree Akers MD Patient is being seen: MarteChristine cardenas Medical Diagnosis: STEMI; STENT x 4 Date of Onset: 07/05/18 Date of Initial Evaluation: 08/17/18 Date patient was last seen: 10/07/18 Number of treatments: 17 Number of cancellations/No Shows: 7 INTERVENTIONS: Due Date: 11/11/18 Exercise Reassessment (Date: 10/11/18): The patient has been sick occasionally over the past month, causing him to only attend 8/11 sessions. Prior to him being sick, he was highly motivated to start pushing himself harder. He reported being bored with his exercise at his current pace (which was too slow). We gave him the challenge of keep his MET level above 3.0 on the NuStep. This increase in intensity also allowed him to achieve his THR more often, reaching levels of 114-120bpm. This was great progress and we hope to continue this once he has fully recovered from his illness. Goals: 1. achieve 40 minutes/session on average of moderate continuous aerobic exercise, 2. Increase intensity such that METS are above 3.0 on the NuStep and THR is between 105-120bpm. 3. Start incorporating treadmill walking occasionally. Nutrition Reassessment (Date: 10/11/18): No update on nutrition information. We will follow up with the patient to get a better understanding of his daily intake of whole grains, healthy fats, lean meats, and fruits/vegetables. Psychosocial Reassessment (Date: 10/11/18): Patient was excited about his increase in intensitysaying it made him more engaged and motivated to exercise. We hope to continue along this path towards forward progression over the next month by providing positive feedback when he does achieve these intensity goals. [facility]
[2018-10-17 13:07] VITALS: BP_SYST 110; BP_SYST 120; BP_DIAS 66; BP_DIAS 70
[2018-10-19 13:16] VITALS: BP 104/63
[2018-10-19 13:17] VITALS: BP 112/66
[2018-10-21 17:58] VITALS: BP 114/64
[2018-10-21 17:59] VITALS: BP 110/60
[2018-10-28 13:21] VITALS: BP 104/58
[2018-10-28 13:22] VITALS: BP 118/70
[2018-10-31 13:21] VITALS: BP 105/72
[2018-10-31 13:22] VITALS: BP 102/62
[2018-11-02 13:16] VITALS: BP_SYST 102; BP_SYST 110; BP_DIAS 58; BP_DIAS 60
[2018-11-05 12:28] VITALS: BP 100/58
[2018-11-05 12:30] VITALS: BP 110/60
[2018-11-07 18:21] VITALS: BP 110/68
[2018-11-07 18:22] VITALS: BP 102/62
[2018-11-09 17:14] VITALS: BP 100/60
[2018-11-09 17:16] VITALS: BP 92/60
--- NOTE | 2018-11-10 11:14 | CARDIAC REHAB PLAN OF CARE ---
Physician: Bree Akers MD Patient is being seen: MarteChristine cardenas Medical Diagnosis: STEMI; STENT x 4 Date of Onset: 07/05/19 Date of Initial Evaluation: 08/17/18 Date patient was last seen: 11/09/18 Number of treatments: 26 Number of cancellations/No Shows: 20 Due Date: 12/10/18 Exercise Reassessment (Date: 11/10/18): The patient has returned to rehab more regularly following a lot of missed classes the month before. He continuously reports fatigue and muscle soreness, which the staff believes is caused by inactivity and sedentary behavior at home. However, during his time at [facility] he has been able to achieve about 30 minutes of exercise on average and does perform within his THR (averaging 100-108bpm). Due to the patient fatigue, over the next month it is our goal to encourage regular attendance and to perform as much exercise as he feels comfortable with that day (anything is better than nothing). We will stress trying to remain active at home when he is not at [facility]. Nutrition Reassessment (Date: 11/10/18): No information to update with nutritional status. Psychosocial Reassessment (Date: 11/10/18): Patient has become a bit discouraged with his overall fatigue and energy level, which we hope to address with incorporating exercise at home on off days. However, when he is at [facility] he does appear to be enjoying the exercise and social interaction. SEBASTIAN
[2018-11-11 13:14] VITALS: BP 100/60
[2018-11-11 13:15] VITALS: BP 92/60
[2018-11-16] MEDS ORDERED: METO25TA93 PO (11:49)
[2018-11-16] MEDS ORDERED: POTA20PA25 PO (11:49)
== END 2018-11-15 ==
LOC: CARD 10:00
PROVIDERS: ATTEND Family Medicine
DX: I25.2 Old myocardial infarction (principal); Z95.5 Presence of coronary angioplasty implant and graft; I25.10 Atherosclerotic heart disease of native coronary artery without angina pectoris; M17.11 Unilateral primary osteoarthritis, right knee; G47.30 Sleep apnea, unspecified; K21.9 Gastro-esophageal reflux disease without esophagitis; E78.00 Pure hypercholesterolemia, unspecified
CPT/HCPCS: 93798

== ENCOUNTER 2018-12-21 10:00 | Outpatient (RCR) | payer MEDICARE, OTHER ==
[2018-11-18 18:12] VITALS: BP 108/58
[2018-11-18 18:13] VITALS: BP 114/60
[2018-11-21 16:17] VITALS: BP_SYST 108; BP_SYST 110; BP_DIAS 56; BP_DIAS 58
[2018-11-25 13:06] VITALS: BP 112/70
[2018-11-25 13:07] VITALS: BP 110/60
[2018-11-28 12:59] VITALS: BP 122/80
[2018-11-28 13:00] VITALS: BP 108/66
[2018-11-30 12:46] VITALS: BP_SYST 118; BP_SYST 122; BP_DIAS 62; BP_DIAS 66
[2018-12-05 17:57] VITALS: BP 104/64
[2018-12-05 17:58] VITALS: BP 100/58
[2018-12-07 17:34] VITALS: BP 114/68
[2018-12-07 17:36] VITALS: BP 84/58
[2018-12-14 12:52] VITALS: BP 110/76
[2018-12-21 16:25] VITALS: BP 100/72
[2018-12-21 16:26] VITALS: BP 114/58
--- NOTE | 2018-12-22 11:55 | CARDIAC REHAB PLAN OF CARE ---
Physician: Bree Akesr MD Patient is being seen: Christine Marte MS Medical Diagnosis: STEMI; STENT x 4 Date of Onset: 07/05/19 Date of Initial Evaluation: 08/17/18 INTERVENTIONS: Due Date: 12/22/18 Exercise Discharge/Follow-Up (Date: 12/22/18): The patient did improve significantly in his overall exercise tolerance and fitness over the course of his 36 visit program. He improved his 6 Minute Walk Test by 20% and his HR during the test was about 10 beats lower, showing improved cardiovascular function and hopefully ejection function. He started the program being able to do 20 minutes of continuous exercise and now finished the program doing between 35-40 minutes/session. He still reports fatigue and being exhausted the rest of the day following exercise. He wants to continue into the Phase III program as he states he knows this program and exercise is good for him and he knows he wont do it on his own at home. Nutrition Discharge/Follow-Up (Date: 12/22/18): No progress was made on the patients dietary consumption. He was provided with educational materials on how to start and maintain a heart healthy diet and his sat in on conversations about how to make small changes to eat a little bit healthier. He states that he is too old to change his habits now. Over the 36 visit program he was provided with ample opportunity to discuss his nutrition, but he appears to be in the pre-contemplative stage of motivation. He does not quite value the impact healthy diet can have on his health and energy level. During his time in Phase III we hope to still provide health educational opportunities to him. Psychosocial Discharge/Follow-Up (Date: 12/22/18): The patient definitely experienced an increased motivation to exercise and started to be more regular and consistent with his exercise attendance. He still reports being fatigued and having low energy levels but his complaints of such are not near as frequent or significant. He states he does value this program and that is why he wants to return to Phase III [facility]. [facility]IAN
== END 2018-12-21 18:00 | disposition home or self-care (01) ==
LOC: CARD 10:00
PROVIDERS: ATTEND Family Medicine
DX: I25.2 Old myocardial infarction (principal); Z95.5 Presence of coronary angioplasty implant and graft
CPT/HCPCS: 93798

== ENCOUNTER → 2019-03-08 | Outpatient (CLI) | payer MEDICARE, OTHER ==
[~2019-03-08] MED LIST changes: +HYDR30CR10 TP; -OMEP-125 PO; +OMEP-126 PO
[2019-03-08 16:34] LABS: PLATELET COUNT, AUTOMATED 244 K/uL (150-450)
[2019-03-08 16:44] LABS: LDL CHOLESTEROL 57 mg/dl
== END ==
LOC: LAB 16:10
PROVIDERS: ATTEND Family Medicine
DX: I25.10 Atherosclerotic heart disease of native coronary artery without angina pectoris (principal); E03.9 Hypothyroidism, unspecified
CPT/HCPCS: 36415; 82040; 82247; 82310; 82374; 82435; 82465; 82565; 82947; 83718; 84075; 84132; 84155; 84295; 84443; 84450; 84460; 84478; 84520; 85025

== ENCOUNTER → 2019-03-15 | Outpatient (CLI) | payer MEDICARE, OTHER | LOC: LAB 12:19 | PROVIDERS: ATTEND Internal Medicine Cardiovascular Disease | DX: M79.10 Myalgia, unspecified site (principal) | CPT/HCPCS: 36415; 82550 ==